=== PATIENT | female | born 1995 | race Two or more races ===

== ENCOUNTER 2024-05-10 10:15 | Outpatient (AMB) | payer MEDICAID, SELFPAY ==
[2024-05-10 10:37] VITALS: BP 99/67; PULSE 93; RESP 18; TEMP 36.5; O2SAT 96
--- NOTE | 2024-05-10 10:37 | OBCLNT_ITS ---
Vital Signs 05/10/24 10:37 Weight 90.435 kg Weight Measurement Method Standing Scale BP 99/67 Blood Pressure Source Automatic Cuff Blood Pressure Location Left Upper Arm Position Sitting Respiration 18 Pulse 93 Pulse Source Monitor Temp 97.7 F Temp Source Oral Pulse Oximetry (%) 96 Oxygen Delivery Method Room Air Allergies/Home Meds Allergies & Medications Allergies No Known Allergies Allergy (Verified 05/20/24 15:26) Medication Reconciliation [id number]-[id number] 250 mg-250 mg-65 mg tablet (Excedrin Migraine) 2 tab PO DAILY PRN headache #14 tabs 09/06/22 [Rx Confirmed 05/20/24] Intake Visit Data Collection New Patient or Established: Established Patient (seen at [facility] within 3 years) Reason for Visit:: CARE Seen by Clinical Staff ONLY (RN/MA): No 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 1. Little interest or pleasure in doing things: not at all 2. Feeling down, depressed, or hopeless: not at all Total score: 0 PHQ-9 3. Trouble falling or staying asleep, or sleeping too much: Not at all 4. Feeling tired or having little energy: Not at all 5. Poor appetite or overeating: Not at all 6. Feeling bad about yourself - or that you are a failure or have let yourself or your family down: Not at all 7. Trouble concentrating on things, such as reading the newspaper or watching television: Not at all 8. Moving or speaking so slowly that other people could have noticed? - Or the opposite - being so fidgety or restless that you have been moving around a lot more than usual: not at all 9. Thoughts that you would be better off or of hurting yourself in some way: Not at all Total score: 0 Source: Developed by Drs. Al Hernandez, Kim Trevizo, Elias Cole and colleagues, with an educational roger from [employer]. Depression screen completed yes Social History Living Situation History Marital Status: Lives With: Family Housing: Apartment Tobacco History Smoking Status: Never smoker Second Hand Smoke Exposure: Yes (SIGNIFICANT OTHER SMOKES) Alcohol History Alcohol Intake: Never Substance Use History Substance Use: NONE Domestic Abuse History Do You Feel Safe at Home: Yes Past Medical History Past Medical History Have you ever been diagnosed with any of the following: Neurological Problems Cerebrovascular Accident (CVA): No Transient Ischemic Attacks (TIA): No Dementia: No Alzheimer's Disease: No Parkinson's Disease: No Brain Tumor: No Meningitis: No Seizures: No Epilepsy: No Multiple Sclerosis: No Cerebral Palsy: No Amyotrophic Lateral Sclerosis (ALS/Scarlett Gehrig's): No Guillain-Ferris Syndrome: No Spina Bifida: No Paralysis: No Peripheral Neuropathy: No Flores's Palsy: No Subdural Hematoma: No Migraine: No Head Trauma: No Spinal Cord Injury: No Traumatic Brain Injury: No Cardiology Problems Myocardial Infarction: No Cardiac Arrhythmia: No Atrial Fibrillation: No Angina: No Heart Murmur: No Coronary Artery Disease: No Atherosclerotic Heart Disease: No Peripheral Vascular Disease: No Hypercholesterolemia: No Aneurysm: No Congestive Heart Failure: No Hypertension: No Respiratory Problems Chronic Obstructive Pulmonary Disease (COPD): No Asthma: No Bronchitis: No Emphysema: No Pneumonia: No Tuberculosis: No Hx Cough: No Cough: No Wheezing: No Smoking Exposure: No Tobacco Use: No Stomache/Intestinal Problems Liver Cancer: No Hepatitis: No Cirrhosis: No Pancreatic Cancer: No Pancreatitis: No Celiac Disease: No Gall Bladder Disease: No Gastrointestinal Bleed: No Esophageal Varices: No Lassiter's Esophagus: No Colitis: No Crohn's Disease: No Obstructive Bowel: No Hiatal Hernia: No Hemorrhoids: No Polyps: No Genital/Urinary Problems Chronic Kidney Disease: No Renal Disease: No Kidney Stones: No Polycystic Kidney Disease: No Neurogenic Bladder: No Inguinal Hernia: No Dialysis: No Prostate Cancer: No Benign Prostatic Hyperplasia: No Reproductive Problems Breast Cancer: No Endometriosis: No Fibroids: No Genital Herpes: No Gonorrhea: No Pelvic Inflammatory Disease: No Previous Pregnancies: Yes Syphilis: No Musculoskeletal Problems Muscular Dystrophy: No Myasthenia Gravis: No Marfan's Syndrome: No Bone Cancer: No Head,Eye,Nose,Throat Problems Cataracts: No Glaucoma: No Blind: No Retinal Detachment: No Macular Degeneration: No Chronic Ear Infections: No Deafness: No Eye Prosthesis: No Endocrine Problems Diabetes Mellitus Type 1: No Diabetes Mellitus Type 2: Yes (FATHER) Hypoglycemia: No [place]'s Syndrome: No Jake's Disease: No Hyperthyroidism: No Hypothyroidism: No Blood Problems Anemia: No Leukemia: No Hemophilia: No Thalassemia: No Sickle Cell Disease: No Clotting Problems: No Psychologic Problems Schizophrenia: No Recreational Drug Use: No Bipolar Disorder: No Depression: No Anxiety: No Behavior Problems: No Self-Mutilation: No Attention Deficit Disorder: No Other Problems Hospitalization: No Down Syndrome: No Developmental Delay: No Shingles: No Falls: No Blood Transfusions: No Organ Transplant: No Chemotherapy: No Radiation Therapy: No Hyperbaric Therapy: No MRSA: No VRSA: No Vancomycin-Resistant Enterococci: No Human Immunodeficiency Virus (HIV): No Chicken Pox: No Measles: No Mumps: No Rubella (Bulgarian Measles): No Pertussis: No Clostridium Difficile: No Cancer: No Surgical History Angioplasty: No Appendectomy: No Bariatric Surgery: No Breast Surgery: No Cancer Surgery: No Carotid Endarterectomy: No Cholecystectomy: No Colectomy: No Colostomy: No Coronary Artery Bypass Graft: No Valve Replacement: No Herniorrhaphy: No Total Hip Replacement: No Total Knee Replacement: No Hysterectomy: No History of Present Illness HPI Narrative 28-year-old patient presents for transfer of care. She reports a last menstrual period of September 15, 2023, with an estimated due date of June 21, 2024. The patient is currently taking vitamins and reports no other major significant problems in the current . She has a history of one previous section. Labs from December 02, 2023, show blood group O- positive, rubella immune, RPR non-reactive, hepatitis B-negative, HIV-negative, gonorrhea and chlamydia-negative. A one-hour glucose tolerance test on March 18, 2024, resulted in 113. The patient is a positive cystic fibrosis carrier. Anensity and AFB were negative. The patient reports her last ultrasound was done in March in [place]. She is currently 34 weeks and 0 days gestation. The patient confirms movement and denies any other problems. - Panel (12-02-2023): Blood group O-positive, rubella immune, RPR non- reactive, hepatitis B negative, HIV negative, gonorrhea negative, chlamydia neg ative - Glucose Tolerance Test (03-18-2024): One-hour result 113 - Cystic Fibrosis Carrier Screening (Date N/A): Positive - Anensity and AFB (Date N/A): Negative - Ultrasound (March 2024, exact date not specified): Performed in [place] Review of Systems Review of Systems Systems Reviewed: All systems reviewed, normal except as documented Exam General Limitations: no limitations General Appearance: alert, in no apparent distress, comfortable, cooperative, healthy appearing, well developed and well groomed Head Head exam: atraumatic, normocephalic and normal inspection Neck Neck exam: Present normal inspection, full ROM and trachea midline Chest Chest inspection: Present normal inspection and symmetric chest wall rise Abdominal Abdominal exam: Present soft and normal bowel sounds Extremities Extremities exam: Present normal inspection and full ROM Back Back exam: Present normal inspection and full ROM Psych Psychiatric exam: Present normal affect and normal mood Skin Skin exam: Present warm, dry, intact and normal color Assessment & Plan Diagnosis / Problem List (1) Maternal care for low transverse scar from previous delivery: Status: Acute Plan: - Obtain previous ultrasound reports from Dr. Treviño' office. - Schedule new ultrasound. - Confirm ultrasound reports due to previous section. - Plan for repeat section one week before due date (last week of May). - Follow-up appointment in one week. - Schedule 2-3 additional appointments. Details: - at 34 weeks 0 days gestation. - BHUMI: June 21, 2024, based on LMP of September 15, 2023. - History of one previous section. - Recent labs (12/02/2023): O+ blood type, rubella immune, RPR non-reactive, hepatitis B negative, HIV negative, gonorrhea/chlamydia negative. - One-hour glucose tolerance test (03/18/2024): 113. - Positive cystic fibrosis carrier. - Anensity and AFB negative. - Last ultrasound performed in March in [place]. Office Procedures OB Clinic LOC & Office Proc's Nursing/Assessment Patient Status: Established Patient OB Clinic Nursing Assessment: Medication Reconciliation, Update PMH in EMR and Vital Signs OB Clinic Coordination of Care: Complex Care and Chronic Disease 1-5, Consent,records obtained, informed consent, Education Simp Pt/Fam, Lab and Imaging orders, Results/Orders obtained and Staff clarify orders Special Needs: Heart tones Established Patient Charge Established Patient Point Assignment: 135 Established Patient Point Charge: EP Level 4 (120-155)
== END 2024-05-10 10:47 | disposition home or self-care (01) ==
LOC: HODSOBC 10:15
PROVIDERS: PCP Physician Assistant; Referring Provider Physician Assistant; Supervising Provider Obstetrics & Gynecology; Visit Provider Obstetrics & Gynecology
DX: O34.211 Maternal care for low transverse scar from previous cesarean delivery (principal); Z3A.34 34 weeks gestation of pregnancy
CPT/HCPCS: 99214; G0463

== ENCOUNTER 2024-05-20 15:15 | Outpatient (AMB) | payer MEDICAID, SELFPAY ==
[2024-05-20 15:20] VITALS: BP 114/76; PULSE 104; RESP 16; TEMP 35.7; O2SAT 99
--- NOTE | 2024-05-20 15:20 | OBCLNT_ITS ---
Vital Signs 05/20/24 15:20 Weight 90.889 kg Weight Measurement Method Standing Scale BP 114/76 Blood Pressure Source Automatic Cuff Blood Pressure Location Left Upper Arm Position Sitting Respiration 16 Pulse 104 H Pulse Source Monitor Temp 96.3 F L Temp Source Oral Pulse Oximetry (%) 99 Oxygen Delivery Method Room Air Allergies/Home Meds Allergies & Medications Allergies No Known Allergies Allergy (Verified 05/26/24 11:18) Medication Reconciliation [id number] 250 mg-250 mg-65 mg tablet (Excedrin Migraine) 2 tab PO DAILY PRN headache #14 tabs 09/06/22 [Rx Confirmed 05/26/24] Intake Visit Data Collection New Patient or Established: Established Patient (seen at [facility] within 3 years) Reason for Visit:: OBC Seen by Clinical Staff ONLY (RN/MA): No 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: RUSSELL GUILLEN/ [employer] Do You Feel Safe at Home: Yes Authorities Contacted: N/A PCP or OBGYN visit in last 3 months: Yes Date of Last PCP or OBGYN visit: 05/10/24 Hx Now: Yes Are you currently on any form of Control: No Pain Present Currently: No Pain Scale Used: Felton-Hines/Numerical Pain scale:: 0 Smoking Status Smoking Status: Never smoker Questionnaires Covid-19 Vaccine Questionnaire Has patient been vacinated for Covid-19 Have you been vacinated for Covid-19: Yes PHQ-9 PHQ-2 Over the last 2 weeks, how often have you been bothered by any of the following problems? 1. Little interest or pleasure in doing things: not at all 2. Feeling down, depressed, or hopeless: not at all Total score: 0 PHQ-9 3. Trouble falling or staying asleep, or sleeping too much: Not at all 4. Feeling tired or having little energy: Not at all 5. Poor appetite or overeating: Not at all 6. Feeling bad about yourself - or that you are a failure or have let yourself or your family down: Not at all 7. Trouble concentrating on things, such as reading the newspaper or watching television: Not at all 8. Moving or speaking so slowly that other people could have noticed? - Or the opposite - being so fidgety or restless that you have been moving around a lot more than usual: not at all 9. Thoughts that you would be better off or of hurting yourself in some way: Not at all Total score: 0 If you checked off any problems, how difficult have these problems made it for you to do your work, take care of things at home, or get along with other people?: not difficult at all Source: Developed by Drs. Al Hernandez, Kim Trevizo, Elias Cole and colleagues, with an educational roger from [employer]. Depression screen completed yes Social History Living Situation History Marital Status: Lives With: Family Housing: Apartment Tobacco History Smoking Status: Never smoker Second Hand Smoke Exposure: Yes (SIGNIFICANT OTHER SMOKES) Alcohol History Alcohol Intake: Never Substance Use History Substance Use: NONE Domestic Abuse History Do You Feel Safe at Home: Yes Past Medical History Past Medical History Have you ever been diagnosed with any of the following: Neurological Problems Cerebrovascular Accident (CVA): No Transient Ischemic Attacks (TIA): No Dementia: No Alzheimer's Disease: No Parkinson's Disease: No Brain Tumor: No Meningitis: No Seizures: No Epilepsy: No Multiple Sclerosis: No Cerebral Palsy: No Amyotrophic Lateral Sclerosis (ALS/Scarlett Gehrig's): No Guillain-Crimora Syndrome: No Spina Bifida: No Paralysis: No Peripheral Neuropathy: No Flores's Palsy: No Subdural Hematoma: No Migraine: No Head Trauma: No Spinal Cord Injury: No Traumatic Brain Injury: No Cardiology Problems Myocardial Infarction: No Cardiac Arrhythmia: No Atrial Fibrillation: No Angina: No Heart Murmur: No Coronary Artery Disease: No Atherosclerotic Heart Disease: No Peripheral Vascular Disease: No Hypercholesterolemia: No Aneurysm: No Congestive Heart Failure: No Hypertension: No Respiratory Problems Chronic Obstructive Pulmonary Disease (COPD): No Asthma: No Bronchitis: No Emphysema: No Pneumonia: No Tuberculosis: No Hx Cough: No Cough: No Wheezing: No Smoking Exposure: No Tobacco Use: No Stomache/Intestinal Problems Liver Cancer: No Hepatitis: No Cirrhosis: No Pancreatic Cancer: No Pancreatitis: No Celiac Disease: No Gall Bladder Disease: No Gastrointestinal Bleed: No Esophageal Varices: No Lassiter's Esophagus: No Colitis: No Crohn's Disease: No Obstructive Bowel: No Hiatal Hernia: No Hemorrhoids: No Genital/Urinary Problems Renal Disease: No Kidney Stones: No Polycystic Kidney Disease: No Neurogenic Bladder: No Inguinal Hernia: No Dialysis: No Prostate Cancer: No Benign Prostatic Hyperplasia: No Reproductive Problems Breast Cancer: No Endometriosis: No Fibroids: No Genital Herpes: No Gonorrhea: No Pelvic Inflammatory Disease: No Previous Pregnancies: Yes Syphilis: No Musculoskeletal Problems Muscular Dystrophy: No Myasthenia Gravis: No Marfan's Syndrome: No Bone Cancer: No Head,Eye,Nose,Throat Problems Cataracts: No Glaucoma: No Blind: No Retinal Detachment: No Macular Degeneration: No Chronic Ear Infections: No Deafness: No Eye Prosthesis: No Endocrine Problems Diabetes Mellitus Type 1: No Diabetes Mellitus Type 2: Yes (FATHER) Hypoglycemia: No Mary's Syndrome: No Jake's Disease: No Hyperthyroidism: No Hypothyroidism: No Blood Problems Anemia: No Leukemia: No Hemophilia: No Thalassemia: No Sickle Cell Disease: No Clotting Problems: No Psychologic Problems Schizophrenia: No Recreational Drug Use: No Bipolar Disorder: No Depression: No Anxiety: No Behavior Problems: No Self-Mutilation: No Attention Deficit Disorder: No Other Problems Hospitalization: No Down Syndrome: No Developmental Delay: No Shingles: No Falls: No Blood Transfusions: No Organ Transplant: No Chemotherapy: No Radiation Therapy: No Hyperbaric Therapy: No MRSA: No VRSA: No Vancomycin-Resistant Enterococci: No Human Immunodeficiency Virus (HIV): No Chicken Pox: No Measles: No Mumps: No Rubella (Kinyarwanda Measles): No Pertussis: No Clostridium Difficile: No Cancer: No Surgical History Angioplasty: No Appendectomy: No Bariatric Surgery: No Breast Surgery: No Cancer Surgery: No Carotid Endarterectomy: No Cholecystectomy: No Colectomy: No Colostomy: No Coronary Artery Bypass Graft: No Valve Replacement: No Herniorrhaphy: No Total Hip Replacement: No Total Knee Replacement: No Hysterectomy: No History of Present Illness HPI Narrative The patient, who is , reports no contractions and no problems. She states the baby is active. The heart rate is noted to be 155, which is described as normal. No CTX/LOF/VB, reports good FM+ Review of Systems Review of Systems Systems Reviewed: All systems reviewed, normal except as documented Visit BHUMI Calculator Estimated Delivery Date Method Current WG Current Estimate 06/21/24 LMP (Certain) 36w 4d Expected Delivery Route/Plan Repeat Specific Issue/Plans Repeat Initial Weight: Not Recorded Date -?-?-?-?-?-?-?-?-?-?-?-?- EGA Weight Edema CTX Effacement BP Fundal ht Pres Dilation Effacement Station Visit Note Alb Glu FHR Mov 05/20/24 -?-?-?-?-?-?-?--?-?-?-?-?- 35w 3d 90.889 kg 114/76 No c omplaints. GBS next time 145 05/26/24 -?-?-?-?-?-?-?-?-?-?-?-?- 36w 2d 90.775 kg 105/71 Juanita ceja is a at 36 weeks gestation, scheduled for on June 15 at 12:30 PM (arrival at 10:00 AM). FHR 155 bpm, normal movement, no contractions. Mild lower extremity edema noted, consistent with her baseline. GBS swab obtained. Plan: monitor edema, follow up in 1 week, and provide pre-op instructions closer to delivery date. 155 Exam General Limitations: no limitations General Appearance: alert, in no apparent distress, comfortable, cooperative, healthy appearing, well developed and well groomed Chest Chest inspection: Present normal inspection and symmetric chest wall rise Abdominal Abdominal exam: Present soft and normal bowel sounds Psych Psychiatric exam: Present normal affect and normal mood Skin Skin exam: Present warm, dry, intact and normal color Assessment & Plan Diagnosis / Problem List (1) Supervision of high risk , unspecified, third trimester: Status: Acute (2) Maternal care for low transverse scar from previous delivery: Status: Acute Plan Routine care The patient is presenting for a routine visit. The fetus appears to be active, and there are no reported contractions or other problems. A heart rate of 155 bpm was noted, which is within the normal range. - Schedule weekly visits from now onwards - Perform cervical culture swab at next week's appointment - Continue monitoring activity and maternal symptoms Office Procedures OB Clinic LOC & Office Proc's Nursing/Assessment Patient Status: Established Patient OB Clinic Nursing Assessment: BP Monitoring, Medication Reconciliation, Update PMH in EMR and Vital Signs OB Clinic Coordination of Care: Consent,records obtained, informed consent, E ducation Simp Pt/Fam and Staff clarify orders Special Needs: Heart tones Established Patient Charge Established Patient Point Assignment: 105 Established Patient Point Charge: EP Level 3 ([id number])
== END 2024-05-20 15:28 | disposition home or self-care (01) ==
LOC: HODSOBC 15:15
PROVIDERS: PCP Obstetrics & Gynecology; Referring Provider Obstetrics & Gynecology; Supervising Provider Obstetrics & Gynecology; Visit Provider Obstetrics & Gynecology
DX: O09.893 Supervision of other high risk pregnancies, third trimester (principal); O34.211 Maternal care for low transverse scar from previous cesarean delivery; Z3A.36 36 weeks gestation of pregnancy
CPT/HCPCS: 99213; G0463

== ENCOUNTER 2024-05-26 11:04 | Outpatient (AMB) | payer MEDICAID, SELFPAY ==
[2024-05-26 11:17] VITALS: BP 105/71; PULSE 93; RESP 18; TEMP 36.3; O2SAT 97
--- NOTE | 2024-05-26 11:17 | OBCLNT_ITS ---
Vital Signs 05/26/24 11:17 Weight 90.775 kg Weight Measurement Method Standing Scale BP 105/71 Blood Pressure Source Automatic Cuff Blood Pressure Location Left Upper Arm Position Sitting Respiration 18 Pulse 93 Pulse Source Monitor Temp 97.4 F Temp Source Oral Pulse Oximetry (%) 97 Oxygen Delivery Method Room Air Allergies/Home Meds Allergies & Medications Allergies No Known Allergies Allergy (Verified 05/26/24 11:18) Medication Reconciliation [id number] 250 mg-250 mg-65 mg tablet (Excedrin Migraine) 2 tab PO DAILY PRN headache #14 tabs 09/06/22 [Rx Confirmed 05/26/24] Intake Visit Data Collection New Patient or Established: Established Patient (seen at [facility] within 3 years) Reason for Visit:: CARE Seen by Clinical Staff ONLY (RN/MA): No Procurement Analyst Required: Yes Procurement Analyst's name/title: RUSSELL GUILLEN Do You Feel Safe at Home: Yes Authorities Contacted: N/A PCP or OBGYN visit in last 3 months: Yes Hx Now: Yes Are you currently on any form of Control: No Pain Present Currently: No Pain Scale Used: Felton-Hines/Numerical Pain scale:: 0 Smoking Status Smoking Status: Never smoker Questionnaires Covid-19 Vaccine Questionnaire Has patient been vacinated for Covid-19 Have you been vacinated for Covid-19: Yes PHQ-9 PHQ-2 Over the last 2 weeks, how often have you been bothered by any of the following problems? 1. Little interest or pleasure in doing things: not at all 2. Feeling down, depressed, or hopeless: not at all Total score: 0 PHQ-9 3. Trouble falling or staying asleep, or sleeping too much: Not at all 4. Feeling tired or having little energy: Not at all 5. Poor appetite or overeating: Not at all 6. Feeling bad about yourself - or that you are a failure or have let yourself or your family down: Not at all 7. Trouble concentrating on things, such as reading the newspaper or watching television: Not at all 8. Moving or speaking so slowly that other people could have noticed? - Or the opposite - being so fidgety or restless that you have been moving around a lot more than usual: not at all 9. Thoughts that you would be better off or of hurting yourself in some way: Not at all Total score: 0 Source: Developed by Drs. Al Hernandez, Kim Trevizo, Elias Cole and colleagues, with an educational roger from [employer]. Depression screen completed yes Social History Living Situation History Lives With: Family Housing: Apartment Tobacco History Smoking Status: Never smoker Second Hand Smoke Exposure: Yes (SIGNIFICANT OTHER SMOKES) Alcohol History Alcohol Intake: Never Substance Use History Substance Use: NONE Domestic Abuse History Do You Feel Safe at Home: Yes Past Medical History Past Medical History Have you ever been diagnosed with any of the following: Neurological Problems Cerebrovascular Accident (CVA): No Transient Ischemic Attacks (TIA): No Dementia: No Alzheimer's Disease: No Parkinson's Disease: No Brain Tumor: No Meningitis: No Seizures: No Epilepsy: No Multiple Sclerosis: No Cerebral Palsy: No Amyotrophic Lateral Sclerosis (ALS/Scarlett Gehrig's): No Guillain-Trumbull Syndrome: No Spina Bifida: No Paralysis: No Peripheral Neuropathy: No Flores's Palsy: No Subdural Hematoma: No Migraine: No Head Trauma: No Spinal Cord Injury: No Traumatic Brain Injury: No Cardiology Problems Myocardial Infarction: No Cardiac Arrhythmia: No Atrial Fibrillation: No Angina: No Heart Murmur: No Coronary Artery Disease: No Atherosclerotic Heart Disease: No Peripheral Vascular Disease: No Hypercholesterolemia: No Aneurysm: No Congestive Heart Failure: No Hypertension: No Respiratory Problems Chronic Obstructive Pulmonary Disease (COPD): No Asthma: No Bronchitis: No Emphysema: No Pneumonia: No Tuberculosis: No Hx Cough: No Cough: No Wheezing: No Smoking Exposure: No Tobacco Use: No Stomache/Intestinal Problems Liver Cancer: No Hepatitis: No Cirrhosis: No Pancreatic Cancer: No Pancreatitis: No Celiac Disease: No Gall Bladder Disease: No Gastrointestinal Bleed: No Esophageal Varices: No Lassiter's Esophagus: No Colitis: No Crohn's Disease: No Obstructive Bowel: No Hiatal Hernia: No Hemorrhoids: No Genital/Urinary Problems Renal Disease: No Kidney Stones: No Polycystic Kidney Disease: No Neurogenic Bladder: No Inguinal Hernia: No Dialysis: No Reproductive Problems Breast Cancer: No Endometriosis: No Fibroids: No Genital Herpes: No Gonorrhea: No Pelvic Inflammatory Disease: No Previous Pregnancies: Yes Syphilis: No Musculoskeletal Problems Muscular Dystrophy: No Myasthenia Gravis: No Marfan's Syndrome: No Bone Cancer: No Head,Eye,Nose,Throat Problems Cataracts: No Glaucoma: No Blind: No Retinal Detachment: No Macular Degeneration: No Chronic Ear Infections: No Deafness: No Eye Prosthesis: No Endocrine Problems Diabetes Mellitus Type 1: No Diabetes Mellitus Type 2: Yes (FATHER) Hypoglycemia: No [place]'s Syndrome: No Jake's Disease: No Hyperthyroidism: No Hypothyroidism: No Blood Problems Anemia: No Leukemia: No Hemophilia: No Thalassemia: No Sickle Cell Disease: No Clotting Problems: No Psychologic Problems Schizophrenia: No Recreational Drug Use: No Bipolar Disorder: No Depression: No Anxiety: No Behavior Problems: No Self-Mutilation: No Attention Deficit Disorder: No Other Problems Hospitalization: No Down Syndrome: No Developmental Delay: No Shingles: No Falls: No Blood Transfusions: No Organ Transplant: No Chemotherapy: No Radiation Therapy: No Hyperbaric Therapy: No MRSA: No VRSA: No Vancomycin-Resistant Enterococci: No Human Immunodeficiency Virus (HIV): No Chicken Pox: No Measles: No Mumps: No Rubella (Namibian Measles): No Pertussis: No Clostridium Difficile: No Cancer: No Surgical History Angioplasty: No Appendectomy: No Bariatric Surgery: No Breast Surgery: No Cancer Surgery: No Carotid Endarterectomy: No Cholecystectomy: No Colectomy: No Colostomy: No Coronary Artery Bypass Graft: No Valve Replacement: No Herniorrhaphy: No Total Hip Replacement: No Total Knee Replacement: No Hysterectomy: No History of Present Illness HPI Narrative The patient is at 36 weeks gestation and presents for routine care. She reports no contractions or other problems. The patient states her baby is active. She mentions her legs are always swollen, suggesting this is an ongoing issue during her . Diagnostic Test Results and Labs: - Panel (12-02-2023): Blood group O-positive, rubella immune, RPR non- reactive, hepatitis B negative, HIV negative, gonorrhea negative, chlamydia negative - Glucose Tolerance Test (03-18-2024): One-hour result 113 - Cystic Fibrosis Carrier Screening (Date N/A): Positive - N[employer] (Date N/A): Negative - Ultrasound (March 2024, exact date not specified): Performed in [place] Review of Systems Review of Systems Systems Reviewed: All systems reviewed, normal except as documented Visit OB Visit Log OB Flowsheet Initial Weight: Not Recorded Date -?-?-?-?-?-?-?-?-?-?-?-?- EGA Weight Edema CTX Effacement BP Fundal ht Pres Dilation Effacement Station Visit Note Alb Glu FHR Mov 05/20/24 -?-?-?-?-?-?--?-?-?-?-?-?- 35w 3d 90.889 kg 114/76 No c omplaints. GBS next time 145 05/26/24 -?-?-?-?-?-?-?-?-?-?-?-?- 36w 2d 90.775 kg 105/71 Juanita ceja is a at 36 weeks gestation, scheduled for on June 15 at 12:30 PM (arrival at 10:00 AM). FHR 155 bpm, normal movement, no contractions. Mild lower extremity edema noted, consistent with her baseline. GBS swab obtained. Plan: monitor edema, follow up in 1 week, and provide pre-op instructions closer to delivery date. 155 BHUMI Calculator Estimated Delivery Date Method Current WG Current Estimate 06/21/24 LMP (Certain) 36w 4d Expected Delivery Route/Plan Repeat Specific Issue/Plans Repeat Exam General Limitations: no limitations General Appearance: alert, in no apparent distress, comfortable, cooperative, healthy appearing, well developed and well groomed Neck Neck exam: Present normal inspection, full ROM and trachea midline Chest Chest inspection: Present normal inspection and symmetric chest wall rise Abdominal Abdominal exam: Present soft and normal bowel sounds Psych Psychiatric exam: Present normal affect and normal mood Assessment & Plan Diagnosis / Problem List (1) Supervision of high risk , unspecified, third trimester: Status: Acute (2) Maternal care for low transverse scar from previous delivery: Status: Acute Plan Problem-Based Assessment and Plan at 36 weeks gestation Patient is at 36 weeks gestation and scheduled for a on June 15 at 12:30 PM. heart rate was noted to be 155 bpm, which is within normal range. The patient reports normal activity and denies contractions or other problems. Mild lower extremity edema was observed, which the patient states is typical for her. - Group B Streptococcus (GBS) screening culture swab performed - scheduled for June 15 at 12:30 PM; patient to arrive at 10:00 AM - Monitor lower extremity edema - Follow-up appointment scheduled in one week Pt Education Educated the patient on labor signs, including regular contractions, lower back pain, and changes in vaginal discharge. Advised avoiding heavy lifting and getting adequate rest. Instructed to contact the office immediately if any signs occur. Discussed the importance of a balanced diet rich in folic acid, iron, and calcium, and provided a list of recommended and to-avoid foods. Emphasized avoiding high-sugar foods to reduce gestational diabetes risk. Encouraged hydration and frequent, small meals for energy. Office Procedures OB Clinic LOC & Office Proc's Nursing/Assessment Patient Status: Established Patient OB Clinic Nursing Assessment: Medication Reconciliation, Update PMH in EMR and Vital Signs OB Clinic Coordination of Care: Complex Care and Chronic Disease 1-5, Consent,records obtained, informed consent, Education Simp Pt/Fam, Lab and Imaging orders and Staff clarify orders Special Needs: Heart tones Miscellaneous Interventions: Culture Specimen Collection Established Patient Charge Established Patient Point Assignment: 145 Established Patient Point Charge: EP Level 4 (120-155)
== END 2024-05-26 11:35 | disposition home or self-care (01) ==
LOC: HODSOBC 11:04
PROVIDERS: PCP Obstetrics & Gynecology; Referring Provider Obstetrics & Gynecology; Supervising Provider Obstetrics & Gynecology; Visit Provider Obstetrics & Gynecology
DX: O09.893 Supervision of other high risk pregnancies, third trimester (principal); Z3A.36 36 weeks gestation of pregnancy; O34.211 Maternal care for low transverse scar from previous cesarean delivery
CPT/HCPCS: 99214; G0463

== ENCOUNTER 2024-06-01 10:55 | Outpatient (AMB) | payer MEDICAID, SELFPAY ==
[2024-06-01 11:49] VITALS: BP 108/60; PULSE 79; RESP 16; TEMP 36.6; O2SAT 98
--- NOTE | 2024-06-01 11:49 | OBCLNT_ITS ---
Vital Signs 06/01/24 11:49 Weight 91.682 kg Weight Measurement Method Standing Scale BP 108/60 Blood Pressure Source Automatic Cuff Blood Pressure Location Left Upper Arm Position Sitting Respiration 16 Pulse 79 Pulse Source Monitor Temp 97.8 F Temp Source Oral Pulse Oximetry (%) 98 Oxygen Delivery Method Room Air Allergies/Home Meds Allergies & Medications Allergies No Known Allergies Allergy (Verified 06/01/24 11:50) Medication Reconciliation [id number] 250 mg-250 mg-65 mg tablet (Excedrin Migraine) 2 tab PO DAILY PRN headache #14 tabs 09/06/22 [Rx Confirmed 05/26/24] Intake Visit Data Collection New Patient or Established: Established Patient (seen at [facility] within 3 years) Reason for Visit:: OBC Seen by Clinical Staff ONLY (RN/MA): No Tobacco Curer Required: Yes Tobacco Curer's name/title: jose palma / nurses medical assistants phlebotomists Do You Feel Safe at Home: Yes Authorities Contacted: N/A PCP or OBGYN visit in last 3 months: Yes Hx Now: Yes Are you currently on any form of Control: No Pain Present Currently: No Pain Scale Used: Felton-Hines/Numerical Pain scale:: 0 Smoking Status Smoking Status: Never smoker Questionnaires Covid-19 Vaccine Questionnaire Has patient been vacinated for Covid-19 Have you been vacinated for Covid-19: Yes PHQ-9 PHQ-2 Over the last 2 weeks, how often have you been bothered by any of the following problems? 1. Little interest or pleasure in doing things: not at all 2. Feeling down, depressed, or hopeless: not at all Total score: 0 PHQ-9 3. Trouble falling or staying asleep, or sleeping too much: Not at all 4. Feeling tired or having little energy: Not at all 5. Poor appetite or overeating: Not at all 6. Feeling bad about yourself - or that you are a failure or have let yourself or your family down: Not at all 7. Trouble concentrating on things, such as reading the newspaper or watching television: Not at all 8. Moving or speaking so slowly that other people could have noticed? - Or the opposite - being so fidgety or restless that you have been moving around a lot more than usual: not at all 9. Thoughts that you would be better off or of hurting yourself in some way: Not at all Total score: 0 If you checked off any problems, how difficult have these problems made it for you to do your work, take care of things at home, or get along with other people?: not difficult at all Source: Developed by Drs. Al Hernandez, Kim Trevizo, Elias Cole and colleagues, with an educational roger from [employer]. Depression screen completed yes Social History Living Situation History Lives With: Family Housing: Apartment Tobacco History Smoking Status: Never smoker Second Hand Smoke Exposure: Yes (SIGNIFICANT OTHER SMOKES) Alcohol History Alcohol Intake: Never Substance Use History Substance Use: NONE Domestic Abuse History Do You Feel Safe at Home: Yes Past Medical History Past Medical History Have you ever been diagnosed with any of the following: Neurological Problems Cerebrovascular Accident (CVA): No Transient Ischemic Attacks (TIA): No Dementia: No Alzheimer's Disease: No Parkinson's Disease: No Brain Tumor: No Meningitis: No Seizures: No Epilepsy: No Multiple Sclerosis: No Cerebral Palsy: No Amyotrophic Lateral Sclerosis (ALS/Scarlett Gehrig's): No Guillain-B[place]air Syndrome: No Spina Bifida: No Paralysis: No Peripheral Neuropathy: No Flores's Palsy: No Subdural Hematoma: No Migraine: No Head Trauma: No Spinal Cord Injury: No Traumatic Brain Injury: No Cardiology Problems Myocardial Infarction: No Cardiac Arrhythmia: No Atrial Fibrillation: No Angina: No Heart Murmur: No Coronary Artery Disease: No Atherosclerotic Heart Disease: No Peripheral Vascular Disease: No Hypercholesterolemia: No Aneurysm: No Congestive Heart Failure: No Hypertension: No Respiratory Problems Chronic Obstructive Pulmonary Disease (COPD): No Asthma: No Bronchitis: No Emphysema: No Pneumonia: No Tuberculosis: No Hx Cough: No Cough: No Wheezing: No Smoking Exposure: No Tobacco Use: No Stomache/Intestinal Problems Liver Cancer: No Hepatitis: No Cirrhosis: No Pancreatic Cancer: No Pancreatitis: No Celiac Disease: No Gall Bladder Disease: No Gastrointestinal Bleed: No Esophageal Varices: No Lassiter's Esophagus: No Colitis: No Crohn's Disease: No Obstructive Bowel: No Hiatal Hernia: No Hemorrhoids: No Genital/Urinary Problems Renal Disease: No Kidney Stones: No Polycystic Kidney Disease: No Neurogenic Bladder: No Inguinal Hernia: No Dialysis: No Reproductive Problems Breast Cancer: No Endometriosis: No Fibroids: No Genital Herpes: No Gonorrhea: No Pelvic Inflammatory Disease: No Previous Pregnancies: Yes Syphilis: No Musculoskeletal Problems Muscular Dystrophy: No Myasthenia Gravis: No Marfan's Syndrome: No Bone Cancer: No Head,Eye,Nose,Throat Problems Cataracts: No Glaucoma: No Blind: No Retinal Detachment: No Macular Degeneration: No Chronic Ear Infections: No Deafness: No Eye Prosthesis: No Endocrine Problems Diabetes Mellitus Type 1: No Diabetes Mellitus Type 2: Yes (FATHER) Hypoglycemia: No [place]'s Syndrome: No Artie's Disease: No Hyperthyroidism: No Hypothyroidism: No Blood Problems Anemia: No Leukemia: No Hemophilia: No Thalassemia: No Sickle Cell Disease: No Clotting Problems: No Psychologic Problems Schizophrenia: No Recreational Drug Use: No Bipolar Disorder: No Depression: No Anxiety: No Behavior Problems: No Self-Mutilation: No Attention Deficit Disorder: No Other Problems Hospitalization: No Down Syndrome: No Developmental Delay: No Shingles: No Falls: No Blood Transfusions: No Organ Transplant: No Chemotherapy: No Radiation Therapy: No Hyperbaric Therapy: No MRSA: No VRSA: No Vancomycin-Resistant Enterococci: No Human Immunodeficiency Virus (HIV): No Chicken Pox: No Measles: No Mumps: No Rubella (Greek Measles): No Pertussis: No Clostridium Difficile: No Cancer: No Surgical History Angioplasty: No Appendectomy: No Bariatric Surgery: No Breast Surgery: No Cancer Surgery: No Carotid Endarterectomy: No Cholecystectomy: No Colectomy: No Colostomy: No Coronary Artery Bypass Graft: No Valve Replacement: No Herniorrhaphy: No Total Hip Replacement: No Total Knee Replacement: No Hysterectomy: No History of Present Illness HPI Narrative Renu De Leon, 2 para 1, presents for a visit at 37 weeks and 1 day gestation. She is scheduled for a repeat on June 15, 2024, at 12:30 PM. The patient reports feeling more uncomfortable as her progresses. She denies experiencing any contractions at this time. No other specific complaints or symptoms are mentioned. The heart rate is noted to be within normal range at 143-144 beats per minute. No CTX/LOF/VB, reports good FM+ Review of Systems Review of Systems Systems Reviewed: All systems reviewed, normal except as documented Visit OB Visit Log OB Flowsheet Initial Weight: Not Recorded Date -?-?-?-?-?-?-?-?-?-?-?-?- EGA Weight Edema CTX Effacement BP Fundal ht Pres Dilation Effacement Station Visit Note Alb Glu FHR Mov 05/20/24 -?-?-?-?--?-?-?-?-?-?-?-?- 35w 3d 90.889 kg 114/76 No c omplaints. GBS next time 145 05/26/24 -?-?-?-?-?-?-?-?-?-?-?-?- 36w 2d 90.775 kg 105/71 Juanita ceja is a at 36 weeks gestation, scheduled for on June 15 at 12:30 PM (arrival at 10:00 AM). FHR 155 bpm, normal movement, no contractions. Mild lower extremity edema noted, consistent with her baseline. GBS swab obtained. Plan: monitor edema, follow up in 1 week, and provide pre-op instructions closer to delivery date. 155 06/01/24 -?-?-?-?-?-?-?-?-?-?-?-?- 37w 1d 91.682 kg 108/60 G2, P1 at 37 weeks 1 day, repeat on 06/15/2024 at 12:30 PM, no contractions/leakage of fluid/vaginal bleeding and good movements return for visit in 1 week, group B strep pending, third trimester precautions reviewed. BHUMI Calculator Estimated Delivery Date Method Current WG Current Estimate 06/21/24 LMP (Certain) 37w 3d Expected Delivery Route/Plan Repeat Specific Issue/Plans Repeat Exam General Limitations: no limitations General Appearance: alert, in no apparent distress, comfortable, cooperative, healthy appearing, well developed and well groomed Chest Chest inspection: Present normal inspection and symmetric chest wall rise Abdominal Abdominal exam: Present soft and normal bowel sounds Psych Psychiatric exam: Present normal affect and normal mood Assessment & Plan Diagnosis / Problem List (1) Supervision of high risk , unspecified, third trimester: Status: Acute (2) Maternal care for low transverse scar from previous delivery: Status: Acute Plan Renu De Leon, , presents for visit at 37 weeks and 1 day gestation, scheduled for repeat on 06/15/2024. at 37 weeks and 1 day gestation Assessment: Patient is at 37 weeks and 1 day gestation, presenting for routine visit. She reports feeling more uncomfortable but denies contractions. heart rate auscultated at 143-144 bpm, which is within normal limits. Group B Streptococcus (GBS) culture was performed at the last visit. Patient is scheduled for repeat section on 06/15/2024 at 12:30 PM. Plan: - Follow-up visit scheduled for next week - Proceed with planned repeat section on 06/15/2024 at 12:30 PM - Continue routine care and monitoring Office Procedures OB Clinic LOC & Office Proc's Nursing/Assessment Patient Status: Established Patient OB Clinic Nursing Assessment: BP Monitoring, Medication Reconciliation, Update PMH in EMR and Vital Signs OB Clinic Coordination of Care: Consent,records obtained, informed consent, Education Simp Pt/Fam and Staff clarify orders Special Needs: Heart tones Miscellaneous Interventions: Pelvic/Pap Smear Set up Established Patient Charge Established Patient Point Assignment: 125 Established Patient Point Charge: EP Level 4 (120-155)
== END 2024-06-01 11:53 | disposition home or self-care (01) ==
LOC: HODSOBC 10:55
PROVIDERS: PCP Obstetrics & Gynecology; Referring Provider Obstetrics & Gynecology; Supervising Provider Obstetrics & Gynecology; Visit Provider Obstetrics & Gynecology
DX: O09.893 Supervision of other high risk pregnancies, third trimester (principal); O34.211 Maternal care for low transverse scar from previous cesarean delivery; Z3A.37 37 weeks gestation of pregnancy
CPT/HCPCS: 99214; G0463

== ENCOUNTER 2024-06-08 14:47 | Outpatient (AMB) | payer MEDICAID, SELFPAY ==
[2024-06-08 15:09] VITALS: BP 110/73; PULSE 92; RESP 18; TEMP 36.2; O2SAT 98
--- NOTE | 2024-06-08 15:09 | AMB.OBVISIT ---
Vital Signs 06/08/24 15:09 Weight 92.136 kg Weight Measurement Method Standing Scale BP 110/73 Blood Pressure Source Automatic Cuff Blood Pressure Location Left Upper Arm Position Sitting Respiration 18 Pulse 92 Pulse Source Monitor Temp 97.2 F Temp Source Oral Pulse Oximetry (%) 98 Oxygen Delivery Method Room Air Allergies/Home Meds Allergies & Medications Allergies No Known Allergies Allergy (Verified 06/08/24 15:10) Medication Reconciliation [id number]-[id number] 250 mg-250 mg-65 mg tablet (Excedrin Migraine) 2 tab PO DAILY PRN headache #14 tabs 09/06/22 [Rx Confirmed 06/08/24] Intake Visit Data Collection New Patient or Established: Established Patient (seen at [facility] within 3 years) Reason for Visit:: Routine visit for scheduled Seen by Clinical Staff ONLY (RN/MA): No Radioisotope Production Operator Required: Yes Radioisotope Production Operator's name/title: PEDRO GUILLEN MA Do You Feel Safe at Home: Yes Authorities Contacted: N/A PCP or OBGYN visit in last 3 months: Yes Date of Last PCP or OBGYN visit: 06/01/24 Hx Now: Yes Are you currently on any form of Control: No Pain Present Currently: No Pain Scale Used: Felton-Hines/Numerical Pain scale:: 0 Smoking Status Smoking Status: Never smoker Questionnaires Covid-19 Vaccine Questionnaire Has patient been vacinated for Covid-19 Have you been vacinated for Covid-19: Yes PHQ-9 PHQ-2 Over the last 2 weeks, how often have you been bothered by any of the following problems? 1. Little interest or pleasure in doing things: not at all 2. Feeling down, depressed, or hopeless: not at all Total score: 0 PHQ-9 3. Trouble falling or staying asleep, or sleeping too much: Not at all 4. Feeling tired or having little energy: Not at all 5. Poor appetite or overeating: Not at all 6. Feeling bad about yourself - or that you are a failure or have let yourself or your family down: Not at all 7. Trouble concentrating on things, such as reading the newspaper or watching television: Not at all 8. Moving or speaking so slowly that other people could have noticed? - Or the opposite - being so fidgety or restless that you have been moving around a lot more than usual: not at all 9. Thoughts that you would be better off or of hurting yourself in some way: Not at all Total score: 0 Source: Developed by Drs. Al Hernandez, Kim Trevizo, Elias Cole and colleagues, with an educational roger from [employer]. Social History Living Situation History Lives With: Family Housing: Apartment Tobacco History Smoking Status: Never smoker Second Hand Smoke Exposure: Yes (SIGNIFICANT OTHER SMOKES) Alcohol History Alcohol Intake: Never Substance Use History Substance Use: NONE Domestic Abuse History Do You Feel Safe at Home: Yes Past Medical History Past Medical History Have you ever been diagnosed with any of the following: Neurological Problems Cerebrovascular Accident (CVA): No Transient Ischemic Attacks (TIA): No Dementia: No Alzheimer's Disease: No Parkinson's Disease: No Brain Tumor: No Meningitis: No Seizures: No Epilepsy: No Multiple Sclerosis: No Cerebral Palsy: No Amyotrophic Lateral Sclerosis (ALS/Scarlett Gehrig's): No Guillain-Lovely Syndrome: No Spina Bifida: No Paralysis: No Peripheral Neuropathy: No Flores's Palsy: No Subdural Hematoma: No Migraine: No Head Trauma: No Spinal Cord Injury: No Traumatic Brain Injury: No Cardiology Problems Myocardial Infarction: No Cardiac Arrhythmia: No Atrial Fibrillation: No Angina: No Heart Murmur: No Coronary Artery Disease: No Atherosclerotic Heart Disease: No Peripheral Vascular Disease: No Hypercholesterolemia: No Aneurysm: No Congestive Heart Failure: No Hypertension: No Respiratory Problems Chronic Obstructive Pulmonary Disease (COPD): No Asthma: No Bronchitis: No Emphysema: No Pneumonia: No Tuberculosis: No Hx Cough: No Cough: No Wheezing: No Smoking Exposure: No Tobacco Use: No Stomache/Intestinal Problems Liver Cancer: No Hepatitis: No Cirrhosis: No Pancreatic Cancer: No Pancreatitis: No Celiac Disease: No Gall Bladder Disease: No Gastrointestinal Bleed: No Esophageal Varices: No Lassiter's Esophagus: No Colitis: No Crohn's Disease: No Obstructive Bowel: No Hiatal Hernia: No Hemorrhoids: No Genital/Urinary Problems Renal Disease: No Kidney Stones: No Polycystic Kidney Disease: No Neurogenic Bladder: No Inguinal Hernia: No Dialysis: No Reproductive Problems Breast Cancer: No Endometriosis: No Fibroids: No Genital Herpes: No Gonorrhea: No Pelvic Inflammatory Disease: No Previous Pregnancies: Yes Syphilis: No Musculoskeletal Problems Muscular Dystrophy: No Myasthenia Gravis: No Marfan's Syndrome: No Bone Cancer: No Head,Eye,Nose,Throat Problems Cataracts: No Glaucoma: No Blind: No Retinal Detachment: No Macular Degeneration: No Chronic Ear Infections: No Deafness: No Eye Prosthesis: No Endocrine Problems Diabetes Mellitus Type 1: No Diabetes Mellitus Type 2: Yes (FATHER) Hypoglycemia: No Orland's Syndrome: No Dixie's Disease: No Hyperthyroidism: No Hypothyroidism: No Blood Problems Anemia: No Leukemia: No Hemophilia: No Thalassemia: No Sickle Cell Disease: No Clotting Problems: No Psychologic Problems Schizophrenia: No Recreational Drug Use: No Bipolar Disorder: No Depression: No Anxiety: No Behavior Problems: No Self-Mutilation: No Attention Deficit Disorder: No Other Problems Hospitalization: No Down Syndrome: No Developmental Delay: No Shingles: No Falls: No Blood Transfusions: No Organ Transplant: No Chemotherapy: No Radiation Therapy: No Hyperbaric Therapy: No MRSA: No VRSA: No Vancomycin-Resistant Enterococci: No Human Immunodeficiency Virus (HIV): No Chicken Pox: No Measles: No Mumps: No Rubella (Afghan Measles): No Pertussis: No Clostridium Difficile: No Cancer: No Surgical History Angioplasty: No Appendectomy: No Bariatric Surgery: No Breast Surgery: No Cancer Surgery: No Carotid Endarterectomy: No Cholecystectomy: No Colectomy: No Colostomy: No Coronary Artery Bypass Graft: No Valve Replacement: No Herniorrhaphy: No Total Hip Replacement: No Total Knee Replacement: No Hysterectomy: No History of Present Illness HPI Alexa Brown presents for a pre-operative visit ahead of her scheduled next week. The patient reports that her is progressing well, with an active baby and no reported complications. The patient confirms her understanding of the upcoming scheduled for June 15 at 12:30 PM. She has been instructed to check in at 10:00 AM and to refrain from consuming any food or drink after midnight the night before the procedure. The patient is aware that if she experiences contractions before the scheduled date, she should proceed directly to the hospital. Obstetric History - Current : - Scheduled for on June 15, 2024, at 12:30 PM - Patient reports baby is active - No current complaints mentioned Surgical History - Planned scheduled for June 15, 2024 at 12:30 PM Review of Systems General: Negative for fever, chills, fatigue. Cardiovascular: Negative for palpitations. Visit OB Visit Log OB Flowsheet Initial Weight: Not Recorded Date <del>?</del> EGA Weight Edema CTX Effacement BP Fundal ht Pres Dilation Effacement Station Visit Note Alb Glu FHR Mov 05/20/24 <del>?</del> 35w 3d 90.889 kg 114/76 No complaints. GBS next time 145 05/26/24 <del>?</del> 36w 2d 90.775 kg 105/71 Renu is a at 36 weeks gestation, scheduled for on June 15 at 12:30 PM (arrival at 10:00 AM). FHR 155 bpm, normal movement, no contractions. Mild lower extremity edema noted, consistent with her baseline. GBS swab obtained. Plan: monitor edema, follow up in 1 week, and provide pre-op instructions closer to delivery date. 155 06/01/24 <del>?</del> 37w 1d 91.682 kg 108/60 G2, P1 at 37 weeks 1 day, repeat on 06/15/2024 at 12:30 PM, no contractions/leakage of fluid/vaginal bleeding and good movements return for visit in 1 week, group B strep pending, third trimester precautions reviewed. 06/08/24 <del>?</del> 38w 1d 92.136 kg 110/73 Plan: - scheduled for June 15 at 12:30 PM - Patient to check in at 10:00 AM - NPO (nothing by mouth) after midnight the night before surgery - No further appointments scheduled - Post-operative follow-up appointment scheduled for 7 days after surgery - Patient instructed to go to the hospital if contractions begin before scheduled - Patient educated on hospital check-in process: provide name and date of Plan: - scheduled for June 15 at 12:30 PM - Patient to check in at 10:00 AM - NPO (nothing by mouth) after midnight the night before surgery - No further appointments scheduled - Post-operative follow-up appointment scheduled for 7 days after surgery - Patient instructed to go to the hospital if contractions begin before scheduled - Patient educated on hospital check-in process: provide name and date of . Diagnostic Test Results and Labs: - Panel (12-02-2023): Blood group O-positive, rubella immune, RPR non-reactive, hepatitis B negative, HIV negative, gonorrhea negative, chlamydia negative - Glucose Tolerance Test (03-18-2024): One-hour result 113 - Cystic Fibrosis Carrier Screening (Date N/A): Positive - Anensity and AFB (Date N/A): Negative - Ultrasound (March 2024, exact date not specified): Performed in [place] [id number] active BHUMI Calculator Estimated Delivery Date Method Current WG Current Estimate 06/21/24 LMP (Certain) 38w 1d Expected Delivery Route/Plan Repeat Specific Issue/Plans Repeat Exam General Limitations: no limitations General Appearance: alert, in no apparent distress, comfortable, cooperative, healthy appearing, well developed and well groomed Chest Chest inspection: Present normal inspection and symmetric chest wall rise Abdominal Abdominal exam: Present soft and normal bowel sounds Psych Psychiatric exam: Present normal affect and normal mood Skin Skin exam: Present warm, dry, intact and normal color Assessment & Plan Diagnosis / Problem List (1) Supervision of high risk , unspecified, third trimester: Status: Acute (2) Maternal care for low transverse scar from previous delivery: Status: Acute Plan Renu Brown, patient, scheduled for next week on June 15 at 12:30 PM. , term Assessment: Patient is at term and scheduled for a planned . heart rate is 165 bpm, which is noted as normal. Patient reports the baby is active, and everything is going well with the . Plan: - scheduled for June 15 at 12:30 PM - Patient to check in at 10:00 AM - NPO (nothing by mouth) after midnight the night before surgery - No further appointments scheduled - Post-operative follow-up appointment scheduled for 7 days after surgery - Patient instructed to go to the hospital if contractions begin before scheduled - Patient educated on hospital check-in process: provide name and date of The patient was counseled regarding her history of prior delivery. Options for delivery were reviewed, including planned repeat section versus trial of labor after (TOLAC). The risks associated with TOLAC, including uterine dehiscence or rupture, were discussed. Due to hospital policy, TOLAC is not permitted at [facility]. If the patient desires TOLAC, referral to an outside facility that supports this option may be considered. The patient was informed that her delivery plan will be guided by clinical indications, type of prior uterine incision, and overall maternal and health throughout the . Educated the patient on the importance of care, including taking vitamins with folic acid, iron, and calcium. Emphasized avoiding alcohol, smoking, and certain medications. Discussed common symptoms like nausea and fatigue, advising small, frequent meals and adequate hydration. Explained the need for regular check-ups and recommended safe physical activities. Instructed on signs of complications, such as severe cramping or bleeding, and when to seek immediate medical attention. Highlighted the importance of a balanced diet and avoiding high-risk foods. Encouraged open communication about any concerns or questions. Encouraged keeping up with all appointments and tests Office Procedures OB Clinic LOC & Office Proc's Nursing/Assessment Patient Status: Established Patient OB Clinic Nursing Assessment: BP Monitoring, Medication Reconciliation, Update PMH in EMR and Vital Signs OB Clinic Coordination of Care: Consent,records obtained, informed consent, Education Simp Pt/Fam and Staff clarify orders Special Needs: Heart tones Established Patient Charge Established Patient Point Assignment: 105 Established Patient Point Charge: EP Level 3 (80-115)
== END 2024-06-08 15:12 | disposition home or self-care (01) ==
LOC: HODSOBC 14:47
PROVIDERS: Supervising Provider Obstetrics & Gynecology; Visit Provider Obstetrics & Gynecology
DX: O09.893 Supervision of other high risk pregnancies, third trimester (principal); Z3A.38 38 weeks gestation of pregnancy; O34.211 Maternal care for low transverse scar from previous cesarean delivery
CPT/HCPCS: 99213; G0463

== ENCOUNTER 2024-06-15 10:10 | Inpatient (IN) | payer MEDICAID, SELFPAY ==
[2024-06-15] VITALS (11 sets, daily range): BP systolic 96–106; BP diastolic 49–66; PULSE 60–83; RESP 12–20; TEMP 36.4; O2SAT 95–100; BMI 39.6; BMI 17.1
[2024-06-15 11:35] LABS: Basophils % (Auto) 0 % (0-2.5); Eosinophils # (Auto) 0.1 Thou/mm3 (0.0-0.5); Eosinophils % (Auto) 1 % (0-10); Hematocrit 32.4 % (36.0-46.0); Hemoglobin 10.6 g/dL (12.0-16.0); Immature Granulocytes % (Auto) 1 % (0-0); Immature Granulocytes Auto 0.06 Thou/mm3 (0.00-0.00); Lymphocytes # (Auto) 1.7 Thou/mm3 (1.0-4.8); Lymphocytes % (Auto) 15 % (10-50); Mean Corpuscular HGB Conc 32.7 g/dl (31.0-37.0); Mean Corpuscular Hemoglobin 25.9 pg (25.0-35.0); Mean Corpuscular Volume 79 fL (80-100); Monocytes # (Auto) 0.6 Thou/mm3 (0.0-0.8); Monocytes % (Auto) 6 % (0-12); Neutrophils # (Auto) 8.8 Thou/mm3 (1.8-7.7); Neutrophils % (Auto) 78 % (37-80); Nucleated Red Blood Cell % 0 /100 WBC (0); Platelet Count 266 Thou/mm3 (140-440); White Blood Count 11.3 Thou/mm3 (3.6-11.0)
[2024-06-15] MEDS: RINGERS LACTATED 1000 ML 1,000 ML 100 ML IV ×2 (11:39→12:25)
--- NOTE | 2024-06-15 11:54 | PD.LDHP ---
Documentation for date of: 06/15/24 OB Labor/Induct. HPI History of Present Illness Chief complaint: Repeat : 2 Para: 1 Term pregnancies: 1 pregnancies: 1 Living children: 0 History of Abortions: Spontaneous and Elective: 0 History of Vaginal deliveries: 0 History of sections: Yes History of : No BHUMI: 06/21/24 History of present illness: Renu De Leon is a 29-year-old at 39 weeks gestation presenting for her scheduled repeat low transverse section. The patient reports no acute complaints on presentation today. This has been uncomplicated, with all screenings within normal limits. The patient's records indicate negative results for various tests conducted in the first trimester, including antibody screen, RPR, hepatitis B, HIV 1 and 2, gonorrhea, and chlamydia. Additionally, the patient tested negative for cystic fibrosis carrier screening, and both NIPT and AFP screenings were negative. The glucose tolerance test result of 113 was also noted to be negative. Obstetric History - GTPAL: - Current : - Gestational age: 39 weeks - Scheduled for repeat low transverse section - history: - Previous section (details not provided) Surgical History - Previous section (details not provided) Immunizations - Rubella: Patient is immune Laboratory, Imaging, and Diagnostic Test Results - Date: 1st trimester (specific date not mentioned) - Blood type: O positive - Antibody screen: negative - Rubella: immune - RPR: non-reactive - Hepatitis B: negative - HIV 1 and 2: negative - Gonorrhea: negative - Chlamydia: negative - Glucose tolerance test: 113 (negative) - Cystic fibrosis carrier screening: negative - NIPT: negative - AFP: negative History of Present Adequate Care: Yes Past Medical History Surgical History SURGICAL: Positive Section Meds Home Medications and Allergies Home Medications ?Medication ?Instructions ?Recorded ?Confirmed ?Type vits no.130-ferrous fum 1 tab PO QDAY 06/15/24 06/15/24 History 27 mg iron-folic acid 800 mcg tablet ( Vitamin) Allergies Allergy/AdvReac Type Severity Reaction Status Date / Time No Known Allergies Allergy Verified 06/15/24 11:37 OB Exam Constitutional Constitutional: no acute distress Routine HEENT Exam Head: Present normocephalic and atraumatic Eye: Present EOMI and PERRL ENT: Present mucous membranes moist Routine Neck Exam Neck: Present supple and trachea midline Routine Cardiovascular Exam Cardiovascular: Present RRR Routine Abdominal Exam Abdominal: Present soft and normoactive bowel sounds Detailed Labor and Delivery Exam Baseline heart rate: 140 monitor accelerations: 15x15 monitor decelerations: None Routine Extremities Exam Extremities: Present full ROM Routine Skin Exam Skin: Present intact, dry and warm Routine Neurological Exam Neurological: Present alert, oriented X3 and CN II-XII intact Routine Psychiatric Exam Psychiatric: Present normal affect and normal thought process OB Results Labs 06/15/24 11:00 Labs: Short CBC 06/15/24 Range/Units 11:00 WBC 11.3 H (3.6-11.0) Thou/mm3 Hgb 10.6 L (12.0-16.0) g/dL Hct 32.4 L (36.0-46.0) % Plt Count 266 (140-440) Thou/mm3 OB Assessment & Plan Assessment and Plan (1) Supervision of high risk , unspecified, third trimester: Status: Acute (2) Maternal care for low transverse scar from previous delivery: Status: Acute Assessment and plan: Renu De Leon is a 29-year-old at 39 weeks gestation presenting for scheduled repeat low transverse section. Scheduled repeat section Assessment: Patient is a 29-year-old at 39 weeks gestation presenting for a scheduled repeat low transverse section. records have been reviewed and are significant for normal first-trimester screening results, including negative antibody screen, Rubella immunity, non-reactive RPR, negative hepatitis B and HIV tests, and negative gonorrhea and chlamydia screenings. Glucose tolerance test was 113, which is within normal limits. Genetic screenings, including cystic fibrosis carrier screening, NIPT, and AFP, were all negative. Plan: - Admit to inpatient status - Establish IV access with Lactated Ringer's at 125 mL/hour for maintenance - Administer pre-operative medications: - Pepcid - Bicitra - Ancef for surgical prophylaxis - Apply bilateral compression devices for DVT prophylaxis - Insert Castellano catheter - Perform surgical site preparation - Review and sign surgical consent forms - Implement spinal anesthesia with possible general anesthesia as needed - Notify pediatric team for care
[2024-06-15] MEDS: ceFAZolin/D5W 2 GM IV 2 GM/100 ML BAG IV (12:25)
[2024-06-15] MEDS: CITRIC ACID/SODIUM CITR 15 ML UDC (BICITRA) 30 ML PO (12:25)
[2024-06-15] MEDS: FAMOTIDINE INJ 10 MG/ML VIAL 2 ML 20 MG IV (12:25)
[2024-06-15 13:13] LABS: Syphilis Nonreactive (Nonreactive)
--- NOTE | 2024-06-15 13:20 | ESOP_ITS ---
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 Identity was confirmed by double identifiers and she was placed on the operating table.? Spinal anesthesia was administered and she was positioned in the supine position.? The abdomen and perineum were prepped in the usual sterile fashion and a Castellano catheter was placed to continuous drainage.? Sterile drapes were applied.? The incision site was tested for adequacy of anesthesia.? A Pfannen stiel skin incision was made with a scalpel and carried to the subcutaneous fat up to the rectus fascia.? The rectus fascia was incised on either side of the midline and the incisions were extended bilaterally.? The fascia was gently dissected off the ventral surface of the rectus muscle both superiorly and inferiorly.? The rectus bellies were gently in the midline and the peritoneum was identified and entered bluntly using the surgeon's finger.? The peritoneal opening was now stretched to create an adequate opening for access to the uterus.? Talha O-ring retractor was placed for adequate visualization.? The anterior surface of the uterus was palpated.? The bladder reflection was identified and a Jose Collier low transverse uterine incision was made in the lower uterine segment taking care to avoid the bladder.? Uterine entry was accomplished bluntly and the opening was stretched to create adequate room.? The amniotic membranes were now ruptured and clear amniotic fluid was released.? The fetus was noted to be in the vertex position.? The head was gently elevated out of the maternal pelvis and single loop of nuchal cord was found around the neck.? The cord was released and the rest of the shoulders and body were delivered by gentle fundal pressure.? Umbilical cord was doubly clamped, divided and the infant was handed over to the waiting team.? Cord gas s amples were obtained.? The placenta was delivered by gentle traction on the umbilical cord.? The interior of the uterus was now thoroughly cleaned of all blood and debris and membranes.? The hysterotomy angles were grasped by a pair of Allis clamps and the hysterotomy was closed using 1 Monocryl suture in 2 layers.? The first layer was used to approximate the muscle in a running locked fashion, the second layer was used to approximate the thickness of the myometrium?and uterine serosa in an imbricated manner.? Once the repair was completed the hysterotomy was inspected and noted to be adequately hemostatic.?? The hysterotomy was once again inspected and hemostasis was noted to be satisfactory.? The Talha retractor was now removed.? The peritoneal edges were re approximated.? The rectus muscles were re approximated.? The rectus fascia was now repaired using 0 Vicryl suture in a running fashion.? The subcutaneous layer was now copiously irrigated using warm normal saline.? All bleeding points were cauterized using the Bovie.? The subcutaneous fat was closed using 3-0 Vicryl.? The skin was closed using 4-0 Monocryl in a subcuticular fashion.? The skin was cleaned and a sterile dressing was applied.? The patient was now undraped, the abdomen and back were thoroughly cleaned and she was transferred to the recovery room in a stable and awake condition.? The patient tolerated the entire procedure well.? No complications were encountered.? All instrument, sponge and lap counts were correct x2. Estimated blood loss (ml): 750 Complications: none Surgical staff Operation Date: 06/15/24 12:45 <No data on this case meets the specified criteria> Diagnosis Discharge Diagnosis (1) Supervision of high risk , unspecified, third trimester: Status: Acute (2) Maternal care for low transverse scar from previous delivery: Status: Acute Problem List Completed Was Problem List Reviewed/Reconciled?: Yes
--- NOTE | 2024-06-15 13:22 | OBDSUM_ITS ---
Data (Carey) Data Hx Section: Yes Delivery Data (Carey) Delivery Data Delivered by: Scott Calhoun Delivery nurse: Huy Mcpherson nurse: Amalia Mayo EVENT LIGHTING SPECIALIST Power Plant Superintendent at delivery: Yes (Dr. Villagomez)
--- NOTE | 2024-06-15 13:22 | PD.LDDELS ---
Data (Carey) Data Hx Section: Yes Delivery Data (Carey) Delivery Data Delivered by: Scott Calhoun Delivery nurse: Huy Mcpherson nurse: Amalia Mayo CONCRETE STONE FABRICATING SUPERVISOR Tank Car Inspector at delivery: Yes (Dr. Villagomez)
[2024-06-15] MEDS: OXYTOCIN in NS 20 units 20 UNIT/1,000 ML BAG 125 UNIT IV ×2 (15:27→23:29)
[2024-06-16 00:49] VITALS: BP 110/64; PULSE 80; RESP 18; TEMP 36.9; O2SAT 96
[2024-06-16 04:00] VITALS: BP 98/57; PULSE 86; RESP 20; TEMP 36.6; O2SAT 97
[2024-06-16] MEDS: IBUPROFEN TAB 400 MG TABLET 800 MG PO ×2 (04:07→14:28)
[2024-06-16] MEDS: SIMETHICONE 80 MG CHEW PO ×2 (04:15→14:28)
[2024-06-16 05:24] LABS: Basophils % (Auto) 0 % (0-2.5); Eosinophils % (Auto) 0 % (0-10); Hematocrit 27.7 % (36.0-46.0); Hemoglobin 9.2 g/dL (12.0-16.0); Immature Granulocytes % (Auto) 1 % (0-0); Immature Granulocytes Auto 0.07 Thou/mm3 (0.00-0.00); Lymphocytes # (Auto) 1.9 Thou/mm3 (1.0-4.8); Lymphocytes % (Auto) 13 % (10-50); Mean Corpuscular HGB Conc 33.2 g/dl (31.0-37.0); Mean Corpuscular Hemoglobin 25.9 pg (25.0-35.0); Mean Corpuscular Volume 78 fL (80-100); Monocytes # (Auto) 1.3 Thou/mm3 (0.0-0.8); Monocytes % (Auto) 9 % (0-12); Neutrophils % (Auto) 77 % (37-80); Nucleated Red Blood Cell % 0 /100 WBC (0); Platelet Count 251 Thou/mm3 (140-440); RDW Standard Deviation 41.9 fL (36.4-46.3); Red Blood Count 3.55 Miln/mm3 (4.00-5.20); White Blood Count 14.4 Thou/mm3 (3.6-11.0)
[2024-06-16] MEDS: HYDROcodone/APAP 5/325 TABLET 1 TAB PO (07:15)
[2024-06-16] MEDS: Milk Of Magnesia Susp 30 ML UDC PO (07:15)
--- NOTE | 2024-06-16 07:44 | PD.LDPPPRG ---
Subjective Subjective Interval history: Patient is a 29-year-old -0-0-2. She is postop day #1 status post repeat by Dr. Calhoun. Patient states she is doing well she is tolerating a general diet. She states her bleeding is light and her pain is controlled. Exam Vital Signs Temp Pulse Resp BP Pulse Ox O2 Del Method 97.8 F 86 20 98/57 L 97 Room Air 06/16/24 04:00 06/16/24 04:00 06/16/24 04:00 06/16/24 04:00 06/16/24 04:00 06/16/24 04:00 Narrative Exam Patient's abdomen is distended and tympanitic. Nontender. Difficult to feel fundus. Incision clean dry and intact. Extremities show no edema or erythema. Objective Labs 06/16/24 05:10 Labs: Laboratory Results - last 24 hr 06/15/24 06/16/24 11:00 05:10 WBC 11.3 H 14.4 H RBC 4.10 3.55 L Hgb 10.6 L 9.2 L Hct 32.4 L 27.7 L MCV 79 L 78 L MCH 25.9 25.9 MCHC 32.7 33.2 RDW Std Deviation 43.0 41.9 Plt Count 266 251 Neut % (Auto) 78 77 Lymph % (Auto) 15 13 Mineral % (Auto) 6 9 Eos % (Auto) 1 0 Baso % (Auto) 0 0 Neut # (Auto) 8.8 H 11.0 H Lymph # (Auto) 1.7 1.9 Mineral # (Auto) 0.6 1.3 H Eos # (Auto) 0.1 0.0 Baso # (Auto) 0.0 0.0 Immature Gran # (Auto) 0.06 H 0.07 H Absolute Nucleated RBC 0.00 0.00 Immature Gran % 1 H 1 H Nucleated RBC % 0 0 Syphilis Serology Nonreactive Blood Type O Positive Antibody Screen NEGATIVE Crossmatch See Detail Blood Bank Wristband ID Yes Assessment & Plan Problem List (1) Supervision of high risk , unspecified, third trimester: Status: Acute (2) Maternal care for low transverse scar from previous delivery: Status: Acute Assessment and plan: Dulcolax suppository. Increase ambulation in the cox. Hold general diet if patient becomes nauseous. Evaluate later for potential ileus Time Spent With Patient Time: Total time spent is greater than 50% in coordination of care (as documented) at patient's floor/unit and/or counseling patient:
[2024-06-16 08:00] VITALS: BP 98/65; PULSE 83; RESP 19; TEMP 36.6; O2SAT 97
[2024-06-16] MEDS: bisacodyL 10 MG SUPP PR (08:21)
[2024-06-16] MEDS: DOCUSATE SOD 100 MG CAPSULE PO (08:21)
[2024-06-16 12:00] VITALS: BP 102/68; PULSE 90; RESP 18; TEMP 36.6; O2SAT 97
--- NOTE | 2024-06-16 12:32 | PC.SS ---
SS conducted bedside contact with the patient to address nursing referral indicating patient scored high on depression scale. Patient is Khmer speaking only.? Interpreting line used. SS introduced self and role.? SS discussed with patient basis of referral.? SS asked for permission to speak in front of crop farmers.? Patient agreed.? Patient confirmed she has anxiety and depression.? Patient was on medication prior to becoming .? She plans on continuing medication once discharged home. She was being seen at [facility]. Patient has no current thoughts of harming herself or others.? Patient, currently, has no impairments.? No other history of documented mental health. FOB, Jose G Hale, resides in the home. This is patient?s second child. [place], Marcellus, was born yesterday, via . care was completed at [facility].? Patient was consistent with . Patient plans on bottle feeding. Patient is aligned with SNAP, [place] assistance and WIC. Patient denies history of drug/alcohol abuse, domestic violence. Patient describes possessing positive support from her sister. Patient has all resources to include: car seat, clothing and supplies.? oil well services superintendent provided resources to include:? Parenting Network, Warm Line and community numbers. No further intervention required at this time, social sciences department chair will be available to address any further concerns. SS updated bedside nurse. Patient to discharge home this morning.
[2024-06-16 19:52] VITALS: BP 105/67; PULSE 87; RESP 18; TEMP 36.6; O2SAT 97
[2024-06-17 04:08] VITALS: BP 102/61; PULSE 87; RESP 16; TEMP 36.6; O2SAT 97
[2024-06-17] MEDS: IBUPROFEN TAB 400 MG TABLET 800 MG PO (07:08)
--- NOTE | 2024-06-17 07:24 | PD.LDPPPRG ---
Subjective Subjective Interval history: Delivery type: Patient doing well this morning. No acute complaints. Ambulating, tolerating p.o. and voiding without difficulty. HTN/Pre-Eclampsia screen: No chest pain, shortness of breath, headache, visual changes, epigastric or right upper quadrant pain. Breast-feeding, lochia diminishing. Bowel: Flatus+/ BM+ Exam Vital Signs Temp Pulse Resp BP Pulse Ox O2 Del Method 97.9 F 87 16 102/61 97 Room Air 06/17/24 04:08 06/17/24 04:08 06/17/24 04:08 06/17/24 04:08 06/17/24 04:08 06/17/24 04:08 Constitutional Constitutional: no acute distress Routine HEENT Exam Head: Present normocephalic and atraumatic Eye: Present EOMI and PERRL ENT: Present mucous membranes moist Routine Neck Exam Neck: Present supple and trachea midline Routine Respiratory Exam Respiratory: Present chest non-tender, lungs clear, normal breath sounds and no resp distress Routine Cardiovascular Exam Cardiovascular: Present RRR Routine Abdominal Exam Abdominal: Present soft and normoactive bowel sounds Routine Extremities Exam Extremities: Present full ROM Routine Skin Exam Skin: Present intact, dry and warm Routine Neurological Exam Neurological: Present alert, oriented X3 and CN II-XII intact Routine Psychiatric Exam Psychiatric: Present normal affect and normal thought process Objective Labs 06/16/24 05:10 Assessment & Plan Problem List (1) Supervision of high risk , unspecified, third trimester: Status: Acute (2) Maternal care for low transverse scar from previous delivery: Status: Acute Assessment and plan: PPD/POD#2 1. Continue routine care 2. Transition to PO meds. 3. Encourage to ambulate/ breast-feed 4. Anticipate discharge home today. Time Spent With Patient Time: Total time spent is greater than 50% in coordination of care (as documented) at patient's floor/unit and/or counseling patient:
--- NOTE | 2024-06-17 07:25 | PD.LDDS ---
DS: Providers Provider Date of admission: 06/15/24 10:10 Primary care physician: Physician No Primary/Family Admitting Provider: Scott Calhoun MD Attending Provider on Admission: Scott Calhoun MD Consults: 06/15/24 14:23 Referral Routine Comment: Attending Provider on DC: Scott Calhoun MD Discharging Provider: Scott Calhoun MD DS: Diagnosis Discharge Diagnosis (1) Supervision of high risk , unspecified, third trimester: Status: Acute (2) Maternal care for low transverse scar from previous delivery: Status: Acute Problem List Completed Was Problem List Reviewed/Reconciled?: Yes Summary/Hosp Course Brief History: Renu De Leon is a 29-year-old at 39 weeks gestation presenting for her scheduled repeat low transverse section. The patient reports no acute complaints on presentation today. This has been uncomplicated, with all screenings within normal limits. The patient's records indicate negative results for various tests conducted in the first trimester, including antibody screen, RPR, hepatitis B, HIV 1 and 2, gonorrhea, and chlamydia. Additionally, the patient tested negative for cystic fibrosis carrier screening, and both NIPT and AFP screenings were negative. The glucose tolerance test result of 113 was also noted to be negative. Obstetric History - GTPAL: - Current : - Gestational age: 39 weeks - Scheduled for repeat low transverse section - history: - Previous section (details not provided) Surgical History - Previous section (details not provided) Immunizations - Rubella: Patient is immune Laboratory, Imaging, and Diagnostic Test Results - Date: 1st trimester (specific date not mentioned) - Blood type: O positive - Antibody screen: negative - Rubella: immune - RPR: non-reactive - Hepatitis B: negative - HIV 1 and 2: negative - Gonorrhea: negative - Chlamydia: negative - Glucose tolerance test: 113 (negative) - Cystic fibrosis carrier screening: negative - NIPT: negative - AFP: negative Peripartum Data Delivery Method: Low Transverse Episiotomy Description: None Procedures: Procedures Operation Date: 06/15/24 12:45 Actual Procedure Side Surgeon p in OB Scott Calhoun MD Time Spent with Patient Time attestation: Total time spent providing and/or coordinating discharge services: Exam Vital Signs Temp Pulse Resp BP Pulse Ox O2 Del Method 97.9 F 87 16 102/61 97 Room Air 06/17/24 04:08 06/17/24 04:08 06/17/24 04:08 06/17/24 04:08 06/17/24 04:08 06/17/24 04:08 Discharge Plan Plan Patient Disposition: HOME (Self Care) Patient condition on transfer: Stable Prescriptions/Referrals Prescriptions/Med Rec: New hydrocodone-acetaminophen 5-325 mg Tablet 1 tab PO Q6HR MDD 4 PRN (Reason: Patient rated pain 9 to 10) 5 Days Qty: 20 0RF docusate sodium 100 mg Capsule 100 mg PO QDAY 30 Days Qty: 30 0RF ibuprofen 400 mg Tablet 800 mg PO Q8HR PRN (Reason: Pain Scale 4-6 (Moderate) 10 Days Qty: 30 0RF Continued Excedrin Migraine 250-250-65 mg tablet 2 tab PO DAILY PRN (Reason: headache) Qty: 14 0RF Vitamin 27 mg iron- 800 mcg tablet 1 tab PO QDAY Patient Comments: take 1 tablet by mouth once daily Referrals: Scott Calhoun MD [Physician] - No Primary/Family,Physician [Primary Care Provider] - Patient/Caregiver Discharge Instructions Education Materials: Pain After Childbirth, Depression, Breast Care After , After a , Section (), C Section Dc, Change Expect Parents Print Language: Hebrew Stand Alone Forms: Kim Quintero Info., Patient Portal Info Letter, DC from Surgery Discharge Order Discharge Orders: Discharge (Routine); Ordered 06/17/24 Ordered By: Scott Calhoun Planned Discharge Date 06/17/24
[2024-06-17 07:40] VITALS: BP 101/65; PULSE 79; RESP 18; TEMP 36.6; O2SAT 97
--- NOTE | 2024-06-17 11:33 | CHAP ---
Patient was visited by the Spiritual Care Volunteer who prayed for them. Baby [place] given to the . (Volunteer was in the hospital from 10:15-11:33).
== END 2024-06-17 13:27 | disposition home or self-care (01) | DRG 540 ==
LOC: S4SX 10:49 → S4NX 12:44
PROVIDERS: Admitting Provider Obstetrics & Gynecology; Visit Provider Obstetrics & Gynecology
PROC: 10D00Z1 Extraction of Products of Conception, Low, Open Approach (ICD-10-PCS; CPT 59514; principal; 2024-06-15 12:30)
DX: O34.211 Maternal care for low transverse scar from previous cesarean delivery (principal); Z37.0 Single live birth; Z3A.39 39 weeks gestation of pregnancy; O69.81X0 Labor and delivery complicated by cord around neck, without compression, not applicable or unspecified; O32.1XX0 Maternal care for breech presentation, not applicable or unspecified
CPT/HCPCS: 36415; 85025; 86780; 86850; 86900; 86901; 86923; A4649; J0689; J1100; J2274; J2371; J2405; J2590; J3490; J7120; A9270; J2270

== ENCOUNTER 2024-06-28 11:16 | Outpatient (AMB) | payer MEDICAID, SELFPAY ==
--- NOTE | 2024-06-28 11:26 | AMB.GYNCLNOT ---
Vital Signs 06/28/24 11:30 Height 1.47 m Height Method Stated Weight 80.343 kg Weight Measurement Method Standing Scale BMI 37.0 BP 106/69 Blood Pressure Source Automatic Cuff Blood Pressure Location Right Upper Arm Position Sitting Respiration 16 Pulse 74 Pulse Source Monitor Temp 97.6 F Temp Source Oral Pulse Oximetry (%) 98 Oxygen Delivery Method Room Air Allergies/Home Meds Allergies & Medications Allergies No Known Allergies Allergy (Verified 06/28/24 11:31) Medication Reconciliation [id number] 250 mg-250 mg-65 mg tablet (Excedrin Migraine) 2 tab PO DAILY PRN headache #14 tabs 09/06/22 [Rx Confirmed 06/28/24] vits no.130-ferrous fum 27 mg iron-folic acid 800 mcg tablet ( Vitamin) 1 tab PO QDAY 06/15/24 [History Confirmed 06/28/24] docusate sodium 100 mg capsule 100 mg PO QDAY 30 days #30 caps 06/17/24 [Rx] Intake Visit Data Collection New Patient or Established: Established Patient (seen at [facility] within 3 years) Reason for Visit:: POST C SECTION FOLLOW UP Seen by Clinical Staff ONLY (RN/MA): No Private Equity Associate Required: Yes Private Equity Associate's name/title: RUSSELL GUILLEN Do You Feel Safe at Home: Yes Authorities Contacted: N/A PCP or OBGYN visit in last 3 months: Yes Hx Now: No Are you currently on any form of Control: No Pain Present Currently: No Pain Scale Used: Felton-Hines/Numerical Pain scale:: 0 Smoking Status Smoking Status: Never smoker Program Director Air Talent history Program Director Air Talent History Menstrual regularity: regular Flow: normal Monthly: Yes How many days does period last: 6 Age at menarche: 14 Currently sexually active: No If not currently sexually active, have you ever been sexually active: Yes Questionnaires Covid-19 Vaccine Questionnaire Has patient been vacinated for Covid-19 Have you been vacinated for Covid-19: No PHQ-9 PHQ-2 Over the last 2 weeks, how often have you been bothered by any of the following problems? 1. Little interest or pleasure in doing things: not at all 2. Feeling down, depressed, or hopeless: not at all Total score: 0 PHQ-9 3. Trouble falling or staying asleep, or sleeping too much: Not at all 4. Feeling tired or having little energy: Not at all 5. Poor appetite or overeating: Not at all 6. Feeling bad about yourself - or that you are a failure or have let yourself or your family down: Not at all 7. Trouble concentrating on things, such as reading the newspaper or watching television: Not at all 8. Moving or speaking so slowly that other people could have noticed? - Or the opposite - being so fidgety or restless that you have been moving around a lot more than usual: not at all 9. Thoughts that you would be better off or of hurting yourself in some way: Not at all Total score: 0 Source: Developed by Drs. Al Hernandez, Kim Trevizo, Elias Cole and colleagues, with an educational roger from [employer]. Depression screen completed yes Social History Living Situation History Lives With: Family Housing: Apartment Tobacco History Smoking Status: Never smoker Second Hand Smoke Exposure: No Alcohol History Alcohol Intake: Never Substance Use History Substance Use: NONE Domestic Abuse History Do You Feel Safe at Home: Yes History of Present Illness HPI Narrative Patient presents for a postoperative follow-up visit approximately 2 weeks after performed on 06/16/2024. She reports a rash, which appears to be a reaction to pain medication. The patient is currently bottle-feeding her with formula. The surgical site is being evaluated during this visit. The clinician removes a band-aid from the surgical area, noting that it should remain open to air-dry at this point. She has a history of (performed on 06/16/2024). The patient is currently taking multiple medications, including pain medication and potentially ibuprofen. She reports no previous issues with ibuprofen use. The pain medicine is causing a rash reaction and has been discontinued. The patient's overall health status appears stable, with the main concerns being the surgical site healing and the medication-induced rash. The impact of these issues on her daily functioning and ability to care for her is not explicitly mentioned. Review of Systems reveals positive for rash on the skin. Review of Systems Review of Systems Systems Reviewed: All systems reviewed, normal except as documented Exam Narrative Physical exam: - Abdomen: surgical site examined. Appears normal. - Skin: Band-aid removed from unspecified location. Rash observed on unspecified area. General General Appearance: alert, in no apparent distress and healthy appearing Head Head exam: atraumatic Neck Neck exam: Present normal inspection and trachea midline Chest Chest inspection: Present normal inspection and symmetric chest wall rise External exam: Present normal external exam; Absent tenderness Neuro Neurological exam: Present oriented X3 Psych Psychiatric exam: Present normal affect and normal mood Assessment & Plan Diagnosis / Problem List (1) Acute postoperative pain: Status: Acute (2) Supervision of high risk , unspecified, third trimester: Status: Acute (3) Maternal care for low transverse scar from previous delivery: Status: Acute (4) care following delivery: Status: Acute (5) FDE (fixed drug eruption): Status: Acute Plan Postoperative Follow-up: - Surgical site healing appropriately - Band-aid removed during examination - Recommend leaving site open to air-dry - Follow-up appointment scheduled in 1 month Medication-induced Rash: - Rash appears to be a reaction to pain medication - No previous adverse reactions to ibuprofen reported Infant Feeding: - Patient reports formula feeding for infant nutrition Plan: - Remove band-aid from surgical site - Allow surgical site to remain open for air-drying - Discontinue current pain medication - Switch to ibuprofen for pain management - Educate patient on discontinuing pain medication and using ibuprofen instead - Continue current feeding regimen with formula - Follow-up appointment in 1 month Office Procedures OB Clinic LOC & Office Proc's Nursing/Assessment Patient Status: Established Patient OB Clinic Nursing Assessment: Medication Reconciliation, Update PMH in EMR and Vital Signs OB Clinic Coordination of Care: Complex Care and Chronic Disease 1-5, Consent,records obtained, informed consent, Education Simp Pt/Fam, Results/Orders obtained and Staff clarify orders Established Patient Charge Established Patient Point Assignment: 90 Established Patient Point Charge: EP Level 3 (80-115) CUSTOMER COMPLAINT CLERK: Past Medical History Past Medical History: No Hx Neurological Disorders, No Hx Hypothyroidism, No Hx Hyperthyroidism, No Hx Breast Cancer, No Hx Cardiac Disorders, No Hx Hypertension, No Hx Cancer, No Hx Blood Disorders, No Hx Anemia, No Hx Renal Disease, No Hx Diabetes Mellitus Type 1, Yes Hx Diabetes Mellitus Type 2 (FATHER) and No Hx Hysterectomy
[2024-06-28 11:30] VITALS: BP 106/69; PULSE 74; RESP 16; TEMP 36.4; O2SAT 98; BMI 37.0
== END 2024-06-28 11:45 | disposition home or self-care (01) ==
LOC: HODSOBC 11:16
PROVIDERS: Supervising Provider Obstetrics & Gynecology; Visit Provider Obstetrics & Gynecology
DX: Z39.2 Encounter for routine postpartum follow-up (principal); O90.89 Other complications of the puerperium, not elsewhere classified; L27.1 Localized skin eruption due to drugs and medicaments taken internally; T50.905A Adverse effect of unspecified drugs, medicaments and biological substances, initial encounter
CPT/HCPCS: 99213; G0463

== ENCOUNTER 2024-08-15 10:06 | Emergency (ER) | payer MEDICAID, SELFPAY ==
[2024-08-15 11:04] VITALS: BP 109/76; PULSE 80; RESP 14; TEMP 36.6; O2SAT 98
--- NOTE | 2024-08-15 11:07 | XR_ITS ---
Examination: CT abdomen and pelvis without contrast. Coronal 3-D reconstructions. Sagittal 2-D reconstructions. Date and time of exam:August 15, 2024, 1303 hrs. Indications: Lower abdominal pain beginning one month ago, 2 months ago CTDI: vol (mGy): 10.4 DLP: (mGycm): 530 Technique: Axial images of the abdomen have been obtained, 3 mm slice thickness Intravenous contrast material has not been administered. Low dose protocols were performed. One or more of the following dose reduction techniques were used; automated exposure control, adjustment of the mA and/or KV according to patient size, use of iterative reconstruction technique. Findings: Fatty infiltration throughout the liver No gallstones Negative for pancreatitis No renal or ureteral calculi. Aorta normal size 25 mm fat-containing umbilical hernia Mildly enlarged uterus No pelvic hematoma or abscess Bladder intact Left pelvic phlebolith There is mild inflammation about the cecum although the appendix, coronal images 54 through 66 does not appear enlarged Impression: Mild inflammation about the cecum although the appendix, coronal images 54 through C6, does not appear enlarged, the appearance should be clinically correlated, differential would include nonspecific inflammation of the cecum, Crohn's disease, nonspecific inflammation around the right ovary Recommend pelvic sonography follow-up
--- NOTE | 2024-08-15 11:08 | PD.EDABDPN ---
ED Abdominal Pain RME/HPI General Chief Complaint: Abdominal Pain Stated complaint: LOWER ABD. PAIN FROM C-SEC X2MO. AGO Time seen by provider: 08/15/24 10:52 Arrival date/time: 08/15/24 10:06 This is a case of 29-year-old female who came in in the emergency room due to lower abdominal pain for 2 months after section worsening of the pain now with nausea vomiting no constipation no diarrhea no blood in stool test patient decided to start consult here in the emergency room Source: patient Limitations: no limitations Related Data Home Medications ?Medication ?Instructions ?Recorded ?Confirmed vits no.130-ferrous fum 1 tab PO QDAY 06/15/24 06/28/24 27 mg iron-folic acid 800 mcg tablet ( Vitamin) Previous Rx's ?Medication ?Instructions ?Recorded [id number] 250 2 tab PO DAILY PRN headache #14 09/06/22 mg-250 mg-65 mg tablet (Excedrin tabs Migraine) Allergies Allergy/AdvReac Type Severity Reaction Status Date / Time No Known Allergies Allergy Verified 08/15/24 10:12 Review of Systems Review of Systems Systems Reviewed: All systems reviewed, normal except as documented Constitutional Constitutional: Reports system reviewed and no additional complaints, except as documented and Reports as per HPI ENT Ears, Nose, Mouth, and Throat: Denies dysphagia and Denies odynophagia Cardiovascular Cardiovascular: Reports system reviewed and no additional complaints, except as documented and Reports as per HPI Respiratory Respiratory: Reports system reviewed and no additional complaints, except as documented and Reports as per HPI Gastrointestinal Gastrointestinal: Reports system reviewed and no additional complaints, except as documented, Reports as per HPI, Reports abdominal pain, Denies belching, Denies bloating, Denies change in bowel habits, Denies change in stool character, Denies coffee ground emesis, Denies constipation, Denies cramping, Denies diarrhea, Denies dyspepsia, Denies dysphagia, Denies early satiety, Denies excessive flatus, Denies fecal incontinence, Denies heartburn, Denies hematemesis, Denies hematochezia, Denies loose stools, Denies melena, Reports nausea, Denies odynophagia, Denies tenesmus and Reports vomiting Genitourinary Genitourinary: Reports system reviewed and no additional complaints, except as documented and Reports as per HPI Musculoskeletal Musculoskeletal: Reports system reviewed and no additional complaints, except as documented and Reports as per HPI Neurologic Neurologic: Reports system reviewed and no additional complaints, except as documented and Reports as per HPI Past Medical History Past Medical History NEUROLOGIC: Negative Neurological Disorders, Cerebrovascular Accident, Transient Ischemic Attacks (TIA), Dementia, Alzheimer's Disease, Parkinson's Disease, Brain Tumor, Meningitis, Seizures, Epilepsy, Multiple Sclerosis, Cerebral Palsy, Amyotrophic Lateral Sclerosis (ALS/Scarlett Gehrig's), Guillain-Abrams Syndrome, Spina Bifida, Paralysis, Peripheral Neuropathy, Flores's Palsy, Subdural Hematoma, Migraine, Head Trauma, Spinal Cord Injury or Traumatic Brain Injury CARDIAC: Negative Cardiac Disorders, Myocardial Infarction, Cardiac Arrhythmia, Atrial Fibrillation, Angina, Heart Murmur, Coronary Artery Disease, Atherosclerotic Heart Disease, Peripheral Vascular Disease, Hypercholesterolemia, Aneurysm, Congestive Heart Failure or Hypertension RESPIRATORY: Negative Chronic Obstructive Pulmonary Disease (COPD), Asthma, Bronchitis, Emphysema, Pneumonia, Tuberculosis, Cough, Sputum Production, Wheezing, Smoking Exposure or Tobacco Use GASTROINTESTINAL: Negative Liver Cancer, Hepatitis, Cirrhosis, Pancreatic Cancer, Pancreatitis, Celiac Disease, Gall Bladder Disease, Gastrointestinal Bleed, Esophageal Varices, Lassiter's Esophagus, Colitis, Crohn's Disease, Obstructive Bowel, Hiatal Hernia or Hemorrhoids GENITOURINARY: Negative Genitourinary Disorders, Renal Disease, Kidney Stones, Polycystic Kidney Disease, Neurogenic Bladder, Inguinal Hernia, Dialysis, Prostate Cancer or Benign Prostatic Hyperplasia REPRODUCTIVE: Positive Previous Pregnancies; Negative Breast Cancer, Endometriosis, Fibroids, Genital Herpes, Gonorrhea, Pelvic Inflammatory Disease or Syphilis MUSCULOSKELETAL: Negative Musculoskeletal Disorders, Muscular Dystrophy, Myasthenia Gravis, Marfan's Syndrome or Bone Cancer ENT: Negative Cataracts, Glaucoma, Blind, Retinal Detachment, Macular Degeneration, Ear Infection, Deafness, Head Trauma or Eye Prosthesis ENDOCRINE: Positive Diabetes Mellitus Type 2 (FATHER); Negative Endocrine Disorders, Diabetes Mellitus Type 1, Hypoglycemia, Marcus's Syndrome, Hatley's Disease, Hyperthyroidism or Hypothyroidism HEMATOLOGIC: Negative Blood Disorders, Anemia, Leukemia, Hemophilia, Thalassemia, Sickle Cell Disease or Clotting Problems PSYCHO/SOCIAL: Negative Schizophrenia, Recreational Drug Use, Bipolar Disorder, Depression, Anxiety, Behavior Problems, Self-Mutilation or Attention Deficit Disorder OTHER HISTORY: Negative Hospitalization, Autoimmune Disease, Down Syndrome, Developmental Delay, Shingles, Falls, Blood Transfusions, Blood Transfusion Reaction, Anesthesia Reactions, Organ Transplant, Chemotherapy, Radiation Therapy, Hyperbaric Therapy, MRSA, VRSA, Vancomycin-Resistant Enterococci, Human Immunodeficiency Virus (HIV), Chicken Pox, Measles, Mumps, Rubella ([place] Measles), Pertussis, Clostridium Difficile, Cancer, Breast Cancer or Prostate Cancer Family History FAMILY HISTORY: Negative Family Psychiatric Problems, Family Respiratory Disorders, Family Cardiac Disorders, Family Gastrointestinal Problems, Family Cancer, Family Surgery or Family Anesthesia Reaction Surgical History SURGICAL: Positive Section; Negative Coronary Artery Bypass Graft, Valve Replacement, Carotid Endarterectomy, Abdominal Surgery, Nephrectomy, Joint Replacement, Neurologic Surgery, Lumpectomy, Hysterectomy or Organ Transplant Social History SMOKING STATUS: Never smoker SECOND HAND EXPOSURE: No ED Exam General Limitations: Present no limitations General appearance: Present alert and in no apparent distress Head Head exam: Present atraumatic Eye Eye exam: Present normal appearance, PERRL and EOMI ENT ENT exam: Present normal exam, normal oropharynx and mucous membranes moist Neck Neck exam: Present normal inspection, full ROM and trachea midline; Absent tenderness, meningismus, lymphadenopathy or thyromegaly Chest Chest inspection: Present normal inspection and symmetric chest wall rise; Absent tenderness, rash or abscess Respiratory Respiratory exam: Present normal lung sounds bilaterally; Absent respiratory distress, wheezes, stridor, accessory muscle use or prolonged expiratory phase Cardiovascular Cardiovascular exam: Present regular rate and normal rhythm; Absent bradycardia, tachycardia, normal heart sounds or systolic murmur Abdominal Exam Abdominal exam: Present soft and tenderness (Suprapubic area mild tenderness); Absent distention, guarding, rebound, normal bowel sounds, diminished bowel sounds, hyperactive bowel sounds, hypoactive bowel sounds, organomegaly, trauma, psoas sign, obturator sign, Fiugeroa's sign, Rovsing's sign, tenderness at McBurney's Point or pulsatile mass Abdominal tenderness: Present suprapubic and mild Extremities Exam Extremities exam: Present normal inspection and full ROM Back Exam Back exam: Present normal inspection and full ROM Neurological Exam Neurological exam: Present alert, oriented X3, CN II-XII intact, normal gait and reflexes normal; Absent motor sensory deficit Psychiatric Psychiatric exam: Present normal affect and normal mood Skin Skin exam: Present warm, dry, intact and normal color Course Orders Category Date Time Status CT abdomen pelvis wo con Stat Exams 08/15/24 11:07 Completed CBC Stat Lab 08/15/24 11:27 Completed Comprehensive Metabolic Panel Stat Lab 08/15/24 11:27 Completed HCG Qualitative,Urine Stat Lab 08/15/24 11:54 Completed Lipase Stat Lab 08/15/24 11:27 Completed Urinalysis Stat Lab 08/15/24 11:54 Completed Vital Signs Vital signs: Vital Signs Temperature 97.9 F 08/15/24 11:04 Pulse Rate 80 08/15/24 11:04 Respiratory Rate 14 08/15/24 11:04 Blood Pressure 109/76 08/15/24 11:04 Pulse Oximetry (%) 98 08/15/24 11:04 Oxygen Delivery Method Room Air 08/15/24 11:04 Discharge Plan Prescriptions/Referrals Prescriptions/Med Rec: No Action Excedrin Migraine 250-250-65 mg tablet 2 tab PO DAILY PRN (Reason: headache) Qty: 14 0RF Vitamin 27 mg iron- 800 mcg tablet 1 tab PO QDAY Patient Comments: take 1 tablet by mouth once daily Referrals: Delores Caro PA-C [Primary Care Provider] - In 1 week Patient/Caregiver Discharge Instructions Print Language: Urdu
[2024-08-15 12:03] LABS: Basophils % (Auto) 0 % (0-2.5); Eosinophils # (Auto) 0.2 Thou/mm3 (0.0-0.5); Eosinophils % (Auto) 3 % (0-10); Hematocrit 38.6 % (36.0-46.0); Hemoglobin 12.5 g/dL (12.0-16.0); Immature Granulocytes % (Auto) 0 % (0-0); Immature Granulocytes Auto 0.02 Thou/mm3 (0.00-0.00); Lymphocytes # (Auto) 1.9 Thou/mm3 (1.0-4.8); Lymphocytes % (Auto) 28 % (10-50); Mean Corpuscular HGB Conc 32.4 g/dl (31.0-37.0); Mean Corpuscular Volume 80 fL (80-100); Monocytes # (Auto) 0.5 Thou/mm3 (0.0-0.8); Monocytes % (Auto) 7 % (0-12); Neutrophils # (Auto) 4.2 Thou/mm3 (1.8-7.7); Neutrophils % (Auto) 62 % (37-80); Nucleated Red Blood Cell % 0 /100 WBC (0); Platelet Count 287 Thou/mm3 (140-440); Red Blood Count 4.81 Miln/mm3 (4.00-5.20); White Blood Count 6.8 Thou/mm3 (3.6-11.0)
[2024-08-15 12:10] LABS: Collection Type, Urine Clean Catch
[2024-08-15 12:25] LABS: HCG Qualitative,Urine Negative
[2024-08-15 12:31] LABS: Alanine Aminotransferase 278 U/L (10-49); Albumin, Serum 4.7 gm/dL (3.5-5.0); Albumin/Globulin Ratio 1.5 (1.2-2.2); Alkaline Phosphatase 115 U/L (46-116); Anion Gap 8 (7-16); Aspartate Amino Transferase 179 U/L (0-34); BUN/Creatinine Ratio 10 Ratio (12-20); Bilirubin,Total 0.8 mg/dL (0.3-1.2); Blood Urea Nitrogen 7 mg/dL (9-23); Calcium 9.3 mg/dL (8.3-10.6); Calcium (Corrected) 9.3 mg/dL (8.5-10.1); Carbon Dioxide 24.7 mMol/L (20.0-31.0); Chloride 109 mMol/L (98-107); Creatinine (Component) 0.7 mg/dL (0.6-1.3); Globulin 3.1 gm/dL (2.3-3.5); Glucose 92 mg/dL (74-106); Lipase 31 U/L (12-53); Osmolality,Calculated 281 (275-295); Potassium 4.2 mMol/L (3.4-5.1); Sodium 142 mMol/L (136-145); Total Protein 7.8 gm/dL (5.7-8.2); eGFR > 60 See Note
[2024-08-15 12:32] LABS: Bacteria,Urine Rare; Bilirubin,Urine Negative (Negative); Blood,Urine Negative (Negative); Clarity,Urine Clear (Clear/Hazy); Color,Urine Lt-Yellow (Lt Yel-Yel); Glucose, Urine Negative (Negative); Ketones,Urine Negative (Negative); Leukocyte Esterase,Urine Negative (Negative); Nitrite,Urine Negative (Negative); PH,Urine 5.5 (5.0-7.0); Protein,Urine Negative (Neg - Trace); RBC,Urine 2 /hpf (0-3); Specific Gravity,Urine 1.024 (1.001-1.035); Squamous Epithelial Cell,Urine 5 /hpf (0-5); Urobilinogen,Urine Negative mg/dL (0.0-1.0); WBC,Urine 1 /hpf (0-5)
--- NOTE | 2024-08-15 14:31 | XR_ITS ---
Examination: Pelvic ultrasound, transabdominal, complete Technique: Transabdominal ultrasound of the pelvis performed using grayscale imaging Date and time of exam: August 15, 2024 6008 hours INDICATIONS: Pain in the area of post 2 months ago FINDINGS: Uterus 10.9 cm no uterine mass. Endometrial stripe 0.39 cm Ovaries obscured by bowel gas IMPRESSION: Limited study No uterine mass or intrauterine gestation
[2024-08-15 15:28] VITALS: BP 112/75; PULSE 68; RESP 16; TEMP 36.5; O2SAT 99
--- NOTE | 2024-08-15 17:27 | PD.EDRME ---
Rapid Medical Screening Exam RME Arrival date/time: 08/15/24 10:06 This is a case of 29-year-old female who came in in the emergency room due to lower abdominal pain for 2 months after section worsening of the pain now with nausea vomiting no constipation no diarrhea no blood in stool test patient decided to start consult here in the emergency room Chief Complaint: Abdominal Pain Time Seen by Provider: 08/15/24 10:52 Vital signs: Vital Signs Temperature 97.9 F 08/15/24 11:04 Pulse Rate 80 08/15/24 11:04 Respiratory Rate 14 08/15/24 11:04 Blood Pressure 109/76 08/15/24 11:04 Pulse Oximetry (%) 98 08/15/24 11:04 Oxygen Delivery Method Room Air 08/15/24 11:04
[2024-08-15 19:31] VITALS: BP 112/77; PULSE 67; RESP 16; TEMP 36.8; O2SAT 100
--- NOTE | 2024-08-15 21:02 | PC.NURSE ---
ULTRASOUND STAFF CALLED PATIENT IN THE LOBBY AND OUTSIDE, NO ANSWER RECEIVED FROM PATIENT.
--- NOTE | 2024-08-15 21:16 | PC.NURSE ---
NA x3 [id number] chart will be eloped
--- NOTE | 2024-08-15 23:26 | PD.EDABDPN ---
ED Abdominal Pain RME/HPI General Chief Complaint: Abdominal Pain Stated complaint: LOWER ABD. PAIN FROM C-SEC X2MO. AGO Time seen by provider: 08/15/24 10:52 Arrival date/time: 08/15/24 10:06 29-year-old female presents to the ED with a complaint of bilateral lower pelvic pain that has been ongoing for the past month. She is status post 2 months ago. She states the pain is intermittent, lasting a minute or 2, in the bilateral ovary areas that occurs approximately 2-6 times daily for the past 1 month. She denies any fever or chills, nausea or vomiting, diarrhea or constipation. She also denies any dysuria or frequency. Nothing makes the pain worse and nothing makes it better as it goes away on its own. She has not contacted her primary care provider or her PEDIATRIC GENETICIST. RME / HPI RME / HPI narrative: 08/15/24 10:06 This is a case of 29-year-old female who came in in the emergency room due to lower abdominal pain for 2 months after section worsening of the pain now with nausea vomiting no constipation no diarrhea no blood in stool test patient decided to start consult here in the emergency room Related Data Home Medications ?Medication ?Instructions ?Recorded ?Confirmed vits no.130-ferrous fum 1 tab PO QDAY 06/15/24 06/28/24 27 mg iron-folic acid 800 mcg tablet ( Vitamin) Previous Rx's ?Medication ?Instructions ?Recorded [id number] 250 2 tab PO DAILY PRN headache #14 09/06/22 mg-250 mg-65 mg tablet (Excedrin tabs Migraine) Allergies Allergy/AdvReac Type Severity Reaction Status Date / Time No Known Allergies Allergy Verified 08/15/24 10:12 Review of Systems Review of Systems Systems Reviewed: All systems reviewed, normal except as documented Past Medical History Past Medical History NEUROLOGIC: Negative Neurological Disorders, Cerebrovascular Accident, Transient Ischemic Attacks (TIA), Dementia, Alzheimer's Disease, Parkinson's Disease, Brain Tumor, Meningitis, Seizures, Epilepsy, Multiple Sclerosis, Cerebral Palsy, Amyotrophic Lateral Sclerosis (ALS/Scarlett Gehrig's), Guillain-[place] Syndrome, Spina Bifida, Paralysis, Peripheral Neuropathy, Flores's Palsy, Subdural Hematoma, Migraine, Head Trauma, Spinal Cord Injury or Traumatic Brain Injury CARDIAC: Negative Cardiac Disorders, Myocardial Infarction, Cardiac Arrhythmia, Atrial Fibrillation, Angina, Heart Murmur, Coronary Artery Disease, Atherosclerotic Heart Disease, Peripheral Vascular Disease, Hypercholesterolemia, Aneurysm, Congestive Heart Failure or Hypertension RESPIRATORY: Negative Chronic Obstructive Pulmonary Disease (COPD), Asthma, Bronchitis, Emphysema, Pneumonia, Tuberculosis, Cough, Sputum Production, Wheezing, Smoking Exposure or Tobacco Use GASTROINTESTINAL: Negative Liver Cancer, Hepatitis, Cirrhosis, Pancreatic Cancer, Pancreatitis, Celiac Disease, Gall Bladder Disease, Gastrointestinal Bleed, Esophageal Varices, Lassiter's Esophagus, Colitis, Crohn's Disease, Obstructive Bowel, Hiatal Hernia or Hemorrhoids GENITOURINARY: Negative Genitourinary Disorders, Renal Disease, Kidney Stones, Polycystic Kidney Disease, Neurogenic Bladder, Inguinal Hernia, Dialysis, Prostate Cancer or Benign Prostatic Hyperplasia REPRODUCTIVE: Positive Previous Pregnancies; Negative Breast Cancer, Endometriosis, Fibroids, Genital Herpes, Gonorrhea, Pelvic Inflammatory Disease or Syphilis MUSCULOSKELETAL: Negative Musculoskeletal Disorders, Muscular Dystrophy, Myasthenia Gravis, Marfan's Syndrome or Bone Cancer ENT: Negative Cataracts, Glaucoma, Blind, Retinal Detachment, Macular Degeneration, Ear Infection, Deafness, Head Trauma or Eye Prosthesis ENDOCRINE: Positive Diabetes Mellitus Type 2 (FATHER); Negative Endocrine Disorders, Diabetes Mellitus Type 1, Hypoglycemia, [place]'s Syndrome, Jake's Disease, Hyperthyroidism or Hypothyroidism HEMATOLOGIC: Negative Blood Disorders, Anemia, Leukemia, Hemophilia, Thalassemia, Sickle Cell Disease or Clotting Problems PSYCHO/SOCIAL: Negative Schizophrenia, Recreational Drug Use, Bipolar Disorder, Depression, Anxiety, Behavior Problems, Self-Mutilation or Attention Deficit Disorder OTHER HISTORY: Negative Hospitalization, Autoimmune Disease, Down Syndrome, Developmental Delay, Shingles, Falls, Blood Transfusions, Blood Transfusion Reaction, Anesthesia Reactions, Organ Transplant, Chemotherapy, Radiation Therapy, Hyperbaric Therapy, MRSA, VRSA, Vancomycin-Resistant Enterococci, Human Immunodeficiency Virus (HIV), Chicken Pox, Measles, Mumps, Rubella ([place] Measles), Pertussis, Clostridium Difficile, Cancer, Breast Cancer or Prostate Cancer Family History FAMILY HISTORY: Negative Family Psychiatric Problems, Family Respiratory Disorders, Family Cardiac Disorders, Family Gastrointestinal Problems, Family Cancer, Family Surgery or Family Anesthesia Reaction Surgical History SURGICAL: Positive Section; Negative Coronary Artery Bypass Graft, Valve Replacement, Carotid Endarterectomy, Abdominal Surgery, Nephrectomy, Joint Replacement, Neurologic Surgery, Lumpectomy, Hysterectomy or Organ Transplant Social History SMOKING STATUS: Never smoker SECOND HAND EXPOSURE: No ED Exam Narrative Physical exam: Alert and oriented, Macanese-speaking female, no acute distress. Vital signs reveal blood pressure 112/77, pulse 67, respirations 16 nonlabored, temperature 98.2, O2 sat 100% on room air. Lungs are clear, cardiovascular regular rate and rhythm without murmurs. Abdomen is soft and nontender, bowel sounds are present. No CVA tenderness is noted. Course Course Course Narrative: Labs reveal a normal white count, normal H&H and normal platelets. Chemistry panel reveals normal sodium, potassium, minimally elevated chloride at 109, normal CO2 and gap. Renal function is normal, and calcium is normal. AST and ALT are elevated at 179/278. Lipase is normal at 31. Urinalysis reveals clear light yellow urine with a specific gravity of 1.024 with negative nitrites and negative leukocyte esterase with rare bacteria. Urine hCG is negative. CT of the abdomen and pelvis without contrast (ordered in [facility]) reveals: Impression: Mild inflammation about the cecum although the appendix, coronal images 54 through C6, does not appear enlarged, the appearance should be clinically correlated, differential would include nonspecific inflammation of the cecum, Crohn's disease, nonspecific inflammation around the right ovary. Recommend pelvic sonography follow-up Pelvic US reveals: Ovaries obscured by bowel gas. IMPRESSION: Limited study. No uterine mass or intrauterine gestation. Discussed all results with the patient via dry dip worker line. Advised patient I was ordering an abdominal ultrasound for evaluation of the liver, pancreas, and gallbladder due to elevated liver enzymes. Abdominal US for evaluation of Transaminitis ordered, however patient Eloped from the lobby. Quality Measures none Orders Category Date Time Status CT abdomen pelvis wo con Stat Exams 08/15/24 11:07 Completed US pelvic complete Stat Exams 08/15/24 14:31 Completed CBC Stat Lab 08/15/24 11:27 Completed Comprehensive Metabolic Panel Stat Lab 08/15/24 11:27 Completed HCG Qualitative,Urine Stat Lab 08/15/24 11:54 Completed Lipase Stat Lab 08/15/24 11:27 Completed Urinalysis Stat Lab 08/15/24 11:54 Completed Vital Signs Vital signs: Vital Signs Temperature 97.9 F 08/15/24 11:04 Pulse Rate 80 08/15/24 11:04 Respiratory Rate 14 08/15/24 11:04 Blood Pressure 109/76 08/15/24 11:04 Pulse Oximetry (%) 98 08/15/24 11:04 Oxygen Delivery Method Room Air 06/29/25 11:04 Abdominal Pain MDM MDM Narrative MDM Narrative:: 29-year-old female presents to the ED with a complaint of bilateral lower pelvic pain that has been ongoing for the past month. She is status post 2 months ago. She states the pain is intermittent, lasting a minute or 2, in the bilateral ovary areas that occurs approximately 2-6 times daily for the past 1 month. She denies any fever or chills, nausea or vomiting, diarrhea or constipation. She also denies any dysuria or frequency. Nothing makes the pain worse and nothing makes it better as it goes away on its own. She has not contacted her primary care provider or her PEDIATRIC GENETICIST. Alert and oriented, Macanese-speaking female, no acute distress. Vital signs reveal blood pressure 112/77, pulse 67, respirations 16 nonlabored, temperature 98.2, O2 sat 100% on room air. Lungs are clear, cardiovascular regular rate and rhythm without murmurs. Abdomen is soft and nontender, bowel sounds are present. No CVA tenderness is noted. Labs reveal a normal white count, normal H&H and normal platelets. Chemistry panel reveals normal sodium, potassium, minimally elevated chloride at 109, normal CO2 and gap. Renal function is normal, and calcium is normal. AST and ALT are elevated at 179/278. Lipase is normal at 31. Urinalysis reveals clear light yellow urine with a specific gravity of 1.024 with negative nitrites and negative leukocyte esterase with rare bacteria. Urine hCG is negative. CT of the abdomen and pelvis without contrast (ordered in [facility]) reveals: Impression: Mild inflammation about the cecum although the appendix, coronal images 54 through C6, does not appear enlarged, the appearance should be clinically correlated, differential would include nonspecific inflammation of the cecum, Crohn's disease, nonspecific inflammation around the right ovary. Recommend pelvic sonography follow-up Pelvic US reveals: Ovaries obscured by bowel gas. IMPRESSION: Limited study. No uterine mass or intrauterine gestation. Discussed all results with the patient via dry dip worker line. Advised patient I was ordering an abdominal ultrasound for evaluation of the liver, pancreas, and gallbladder due to elevated liver enzymes. Abdominal US for evaluation of Transaminitis ordered, however patient Eloped from the lobby. Patient data External records reviewed:: None Clinical information provided by:: patient ([employer]ia [employer] Line) Social determinants that could affect healthcare access:: none Patient has the following chronic illnesses:: N/A How is presenting disease/condition affected by chronic disease/condition?: no chronic disease Evaluation data The following diagnostics were reviewed and interpreted by me:: lab results and radiology exam(s) Lab and/or radiology exams considered but not ordered:: N/A Interpretation Summary: Labs reveal a normal white count, normal H&H and normal platelets. Chemistry panel reveals normal sodium, potassium, minimally elevated chloride at 109, normal CO2 and gap. Renal function is normal, and calcium is normal. AST and ALT are elevated at 179/278. Lipase is normal at 31. Urinalysis reveals clear light yellow urine with a specific gravity of 1.024 with negative nitrites and negative leukocyte esterase with rare bacteria. Urine hCG is negative. CT of the abdomen and pelvis without contrast (ordered in [facility]) reveals: Impression: Mild inflammation about the cecum although the appendix, coronal images 54 through C6, does not appear enlarged, the appearance should be clinically correlated, differential would include nonspecific inflammation of the cecum, Crohn's disease, nonspecific inflammation around the right ovary. Recommend pelvic sonography follow-up Pelvic US reveals: Ovaries obscured by bowel gas. IMPRESSION: Limited study. No uterine mass or intrauterine gestation. Discussed all results with the patient via dry dip worker line. Advised patient I was ordering an abdominal ultrasound for evaluation of the liver, pancreas, and gallbladder due to elevated liver enzymes. Abdominal US for evaluation of Transaminitis ordered, however patient Eloped from the lobby. Medications / Prescriptions Medications or Prescriptions considered but not ordered:: N/A Medication administrations:: N/A Consultations Consultation(s) initiated? (list below): Yes Consultation #1 (Physician, Specialty, Details): Discussed case with Dr. Rainey who indicates the need for abdominal ultrasound for evaluation of transaminitis. Diagnosis Differential diagnosis abdominal pain: abdominal pain, acute appendicitis, calculus of kidney, gastroenteritis, pancreatitis and other (Cholecystitis, cholelithiasis, ovarian cyst) Most likely diagnosis given after review of the tests above:: Transaminitis Admission Indicated Admission indicated?: not indicated Explain why admission is indicated or not indicated:: Patient eloped prior to abdominal ultrasound for evaluation of transaminitis. Admission Request Was there a request for admission?: No Disposition Plan Disposition Plan: other (specify) (Elopement) Discharge Attestation Discharge Attestation: Elopement Discharge Plan Plan Patient Disposition: Elopement Prescriptions/Referrals Prescriptions/Med Rec: No Action Excedrin Migraine 250-250-65 mg tablet 2 tab PO DAILY PRN (Reason: headache) Qty: 14 0RF Vitamin 27 mg iron- 800 mcg tablet 1 tab PO QDAY Patient Comments: take 1 tablet by mouth once daily Referrals: Delores Caro PA-C [Primary Care Provider] - In 1 week Problem List Clinical Impression: Transaminitis Patient/Caregiver Discharge Instructions Additional Instructions: Elopement Print Language: Macanese OSWALD/THUAN Supervising Physician OSWALD/THUAN Supervising Physician: Dr. Rainey
== END 2024-08-15 21:18 | disposition left against medical advice (07) ==
PROVIDERS: Nurse Practitioner Family; Emergency Provider Emergency Medicine; PCP Physician Assistant
DX: R74.01 Elevation of levels of liver transaminase levels (principal); K37 Unspecified appendicitis; Z53.29 Procedure and treatment not carried out because of patient's decision for other reasons
CPT/HCPCS: 36415; 74176; 76856; 80053; 81001; 81025; 83690; 85025; 99281